=== PATIENT | male | born 1960 | race Caucasian/White ===

== ENCOUNTER 2020-03-27 08:22 | Outpatient (REF) | payer BC, SELFPAY ==
[2020-03-27 11:23] LABS: Estimated Average Glucose 126 mg/dL; Hemoglobin A1C 147.6677 umol/L
[2020-03-27 11:47] LABS: Alanine Aminotransferase 26 U/L (0-40); Albumin Level 4.6 g/dL (3.5-5.0); Alkaline Phosphatase 67 U/L (39-117); Anion Gap 14 (12-20); Aspartate Amino Transferase 18 U/L (5-37); Bilirubin Total 0.8 mg/dL (0.0-1.0); Blood Urea Nitrogen 18 mg/dL (9-16); Calcium 9.1 mg/dL (8.4-10.2); Carbon Dioxide 24 mmol/L (22-29); Chloride 106 mmol/L (96-108); Cholesterol 170 mg/dL; Estimated Glomerular Filt Rate > 60; Glucose Fasting 131 mg/dL (60-99); HDL Cholesterol 35 mg/dL; LDL Cholesterol Calculated 106 mg/dl; Sodium 140 mmol/L (135-145); Total Protein 7.3 g/dL (6.5-8.0); Triglycerides 146 mg/dL
[2020-03-27 12:01] LABS: Microalbum/Creatinine Ratio Ur 7.5 ug/mg cr
== END 2020-03-27 08:23 | disposition home or self-care (01) ==
LOC: HO.HMGCLDS 08:22
PROVIDERS: PCP Internal Medicine; Visit Provider Internal Medicine
DX: E78.2 Mixed hyperlipidemia (principal); I10 Essential (primary) hypertension; N20.0 Calculus of kidney; E11.69 Type 2 diabetes mellitus with other specified complication
CPT/HCPCS: 80053; 80061; 82043; 83036

== ENCOUNTER 2020-10-10 09:09 | Outpatient (REF) | payer BC, SELFPAY ==
[2020-10-10 11:29] LABS: Glucose Urine UA NEG (NEG); Leukocyte Esterase Urine NEG (NEG); Nitrite Urine NEG (NEG); Specific Gravity - Urine 1.025 (1.005-1.025); Urine Blood NEG (NEG); Urine Ketones NEG (NEG); Urine Protein NEG (NEG-TRACE)
[2020-10-10 11:32] LABS: Appearance Urine TURBID; Color Urine YELLOW
[2020-10-10 11:45] LABS: Hemoglobin 12.3 g/dl (14.0-18.0); Mean Corpuscular HGB Conc 32.4 g/dl (31.0-36.0); Mean Corpuscular Hemoglobin 30.4 pg (27.0-33.0); Mean Corpuscular Volume 93.8 fL (80-98); Mean Platelet Volume 11.8 fL (9.4-12.4); Platelet Count 160 X10*3/uL (160-400); Red Blood Count 4.05 X10*6/uL (4.60-5.80); Red Cell Distribution Width 13.5 % (11.0-16.0); White Blood Count 6.2 X10*3/uL (4.8-10.8)
[2020-10-10 11:51] LABS: Estimated Average Glucose 131 mg/dL; Hemoglobin A1c % 6.2 %
[2020-10-10 11:54] LABS: Alanine Aminotransferase 45 U/L (0-40); Albumin Level 4.4 g/dL (3.5-5.0); Alkaline Phosphatase 63 U/L (39-117); Anion Gap 11 (12-20); Aspartate Amino Transferase 21 U/L (5-37); Bilirubin Total 0.6 mg/dL (0.0-1.0); Blood Urea Nitrogen 14 mg/dL (9-16); Carbon Dioxide 25 mmol/L (22-29); Chloride 108 mmol/L (96-108); Cholesterol 164 mg/dL; Estimated Glomerular Filt Rate > 60; Glucose Fasting 138 mg/dL (60-99); HDL Cholesterol 32 mg/dL; LDL Cholesterol Calculated 77 mg/dl; Potassium 4.3 mmol/L (3.3-5.1); Sodium 140 mmol/L (135-145); Total Protein 6.8 g/dL (6.5-8.0); Triglycerides 276 mg/dL
[2020-10-10 12:04] LABS: RBC Urine 0 /HPF (0); WBC Urine 0 /HPF (0-4)
[2020-10-10 12:05] LABS: Amorphous Sediment Urine 4+ /LPF
[2020-10-10 12:17] LABS: Prostate Specific Antigen Scr 0.34 ng/mL (<0.05-4.0)
[2020-10-10 12:18] LABS: Creatinine Urine 227.78 mg/dL; Microalbum/Creatinine Ratio Ur 7.4 ug/mg cr
== END 2020-10-10 09:10 | disposition home or self-care (01) ==
LOC: HO.HMGCLDS 09:09
PROVIDERS: PCP Internal Medicine; Visit Provider Internal Medicine
DX: Z12.5 Encounter for screening for malignant neoplasm of prostate (principal); E11.9 Type 2 diabetes mellitus without complications; E78.5 Hyperlipidemia, unspecified; I10 Essential (primary) hypertension; N40.0 Benign prostatic hyperplasia without lower urinary tract symptoms
CPT/HCPCS: 36415; 80053; 80061; 81001; 82043; 83036; 84153; 85027

== ENCOUNTER 2021-02-23 10:43 | Outpatient (REF) | payer BC, SELFPAY ==
[2021-02-23 15:42] LABS: Basophils Percent Auto 0.5 % (0-2); MANUAL DIFF FLAG SCAN; PLT CLUMP 1; SCAN SMEAR FLAG 1
[2021-02-23 15:44] LABS: Eosinophils Percent Auto 0.3 % (0-4); Hematocrit 43.1 % (42.0-52.0); Hemoglobin 13.7 g/dl (14.0-18.0); Imm Gran Abs Auto 0.03 X10*3/uL (0.00-0.03); Imm Gran Pct Auto 0.5 % (0.0-0.4); Lymphocytes Absolute Auto 1.6 X10*3/uL (1.2-4.9); Lymphocytes Percent Auto 27.6 % (20-40); Mean Corpuscular HGB Conc 31.8 g/dl (31.0-36.0); Mean Corpuscular Hemoglobin 29.8 pg (27.0-33.0); Mean Corpuscular Volume 93.9 fL (80.0-98.0); Monocytes Absolute Auto 0.4 X10*3/uL (0.1-1.2); Monocytes Percent Auto 7.5 % (2-11); Neutrophils Absolute Auto 3.6 x10*3/uL (2.0-8.3); Neutrophils Percent Auto 63.6 % (45-73); Platelet Count 142 X10*3/uL (160-400); Red Blood Count 4.59 X10*6/uL (4.60-5.80); Red Cell Distribution Width 13.5 % (11.0-16.0); White Blood Count 5.7 X10*3/uL (4.8-10.8)
[2021-02-23 15:56] LABS: Estimated Average Glucose 134 mg/dL; Hemoglobin A1c % 6.3 %
[2021-02-23 15:59] LABS: Alanine Aminotransferase 26 U/L (0-40); Albumin Level 4.6 g/dL (3.5-5.0); Alkaline Phosphatase 70 U/L (39-117); Anion Gap 14 (12-20); Aspartate Amino Transferase 18 U/L (5-37); Bilirubin Total 1.1 mg/dL (0.0-1.0); Blood Urea Nitrogen 15 mg/dL (9-16); Calcium 9.4 mg/dL (8.4-10.2); Carbon Dioxide 26 mmol/L (22-29); Chloride 105 mmol/L (96-108); Cholesterol 168 mg/dL; Estimated Glomerular Filt Rate > 60; Glucose Fasting 145 mg/dL (60-99); HDL Cholesterol 35 mg/dL; Iron 132 mcg/dL (45-160); LDL Cholesterol Calculated 94 mg/dl; Percent Iron Saturation 41 % (15-50); Potassium 4.8 mmol/L (3.3-5.1); Sodium 140 mmol/L (135-145); Total Iron Binding Capacity 322 mcg/dL (228-428); Total Protein 7.5 g/dL (6.5-8.0); Triglycerides 197 mg/dL; Unsaturated Iron Binding 190 ug/dL
[2021-02-23 16:18] LABS: Creatinine Urine 159.01 mg/dL; Microalbum/Creatinine Ratio Ur 9.4 ug/mg cr
[2021-02-23 16:27] LABS: Folate 15.2 ng/mL (> or = 4.0); Vitamin B12 306 pg/mL (200-900)
[2021-02-23 18:34] LABS: SLIDE REVIEW VERIFIED
== END 2021-02-23 10:44 | disposition home or self-care (01) ==
LOC: HO.HMGCLDS 10:43
PROVIDERS: PCP Internal Medicine; Visit Provider Internal Medicine
DX: Z00.00 Encounter for general adult medical examination without abnormal findings (principal); E78.5 Hyperlipidemia, unspecified; I10 Essential (primary) hypertension
CPT/HCPCS: 36415; 80053; 80061; 82043; 82607; 82746; 83036; 83540; 85025

== ENCOUNTER 2021-05-18 11:10 | Outpatient (REF) | payer BC, SELFPAY ==
[2021-05-18 13:58] LABS: Alanine Aminotransferase 29 U/L (0-40); Albumin Level 4.7 g/dL (3.5-5.0); Alkaline Phosphatase 73 U/L (39-117); Anion Gap 13 (12-20); Aspartate Amino Transferase 18 U/L (5-37); Bilirubin Total 0.5 mg/dL (0.0-1.0); Blood Urea Nitrogen 14 mg/dL (9-16); Calcium 10.1 mg/dL (8.4-10.2); Carbon Dioxide 24 mmol/L (22-29); Chloride 107 mmol/L (96-108); Cholesterol 179 mg/dL; Estimated Glomerular Filt Rate > 60; Glucose Fasting 118 mg/dL (60-99); HDL Cholesterol 35 mg/dL; LDL Cholesterol Calculated 100 mg/dl; Potassium 4.2 mmol/L (3.3-5.1); Sodium 140 mmol/L (135-145); Total Protein 7.6 g/dL (6.5-8.0); Triglycerides 223 mg/dL
[2021-05-18 14:06] LABS: Estimated Average Glucose 137 mg/dL; Hemoglobin A1c % 6.4 %
[2021-05-18 14:24] LABS: Creatinine Urine 154.38 mg/dL; Microalbum/Creatinine Ratio Ur 23.9 ug/mg cr
== END 2021-05-18 11:11 | disposition home or self-care (01) ==
LOC: HO.HMGCLDS 11:10
PROVIDERS: Visit Provider Internal Medicine
DX: E11.9 Type 2 diabetes mellitus without complications (principal); I10 Essential (primary) hypertension; E78.5 Hyperlipidemia, unspecified
CPT/HCPCS: 36415; 80053; 80061; 82043; 83036

== ENCOUNTER 2021-11-30 11:12 | Outpatient (REF) | payer BC, SELFPAY ==
[2021-11-30 14:16] LABS: Estimated Average Glucose 123 mg/dL; Hemoglobin A1c % 5.9 %
[2021-11-30 14:25] LABS: Alanine Aminotransferase 18 U/L (0-40); Albumin Level 4.5 g/dL (3.5-5.0); Alkaline Phosphatase 60 U/L (39-117); Anion Gap 14 (12-20); Aspartate Amino Transferase 15 U/L (5-37); Bilirubin Total 0.6 mg/dL (0.0-1.0); Blood Urea Nitrogen 19 mg/dL (9-16); Carbon Dioxide 22 mmol/L (22-29); Chloride 109 mmol/L (96-108); Cholesterol 168 mg/dL; Estimated Glomerular Filt Rate > 60; Glucose Fasting 105 mg/dL (60-99); HDL Cholesterol 35 mg/dL; LDL Cholesterol Calculated 95 mg/dl; Sodium 141 mmol/L (135-145); Total Protein 7.1 g/dL (6.5-8.0); Triglycerides 193 mg/dL
[2021-11-30 14:42] LABS: Creatinine Urine 218.15 mg/dL; Microalbum/Creatinine Ratio Ur 10.5 ug/mg cr
== END 2021-11-30 11:13 | disposition home or self-care (01) ==
LOC: HO.HMGCLDS 11:12
PROVIDERS: PCP Internal Medicine; Visit Provider Internal Medicine
DX: E11.9 Type 2 diabetes mellitus without complications (principal); E78.5 Hyperlipidemia, unspecified; I10 Essential (primary) hypertension
CPT/HCPCS: 36415; 80053; 80061; 82043; 83036

== ENCOUNTER 2022-02-01 13:02 | Outpatient (REF) | payer BC, SELFPAY ==
--- NOTE | ~2022-02-01 | CT_ITS ---
EXAMINATION: CT CHEST SCREENING CLINICAL INFORMATION: Current smoker with 40 pack year history. COMPARISON: None. TECHNIQUE: Multidetector volumetric CT imaging of the chest is performed without contrast using low dose technique. Additional 2D coronal and sagittal reformatted images and axial 3D maximum intensity projection (MIP) images are generated on the CT workstation. This CT examination was performed using dose optimization techniques as appropriate, variously including the following: *Automated exposure control *Adjustment of mA and/or kV according to patient size (this includes techniques or standardized protocols for targeted exams where dose is matched to indication/reason for exam; i.e. extremities or head) *Use of iterative reconstruction technique DLP: 73 mGy-cm CT GI: 1.65 FINDINGS: LUNGS: Central airways are patent. No confluent parenchymal disease. No bronchiectasis. Mild changes of centrilobular emphysema. There are scattered sub-4 mm densities seen bilaterally. No suspicious lung nodules appreciated. MEDIASTINUM: Visualized thyroid gland appears unremarkable. Heart normal size. No pericardial effusion. No thoracic aortic aneurysm. No mediastinal or hilar lymphadenopathy appreciated. CORONARY ARTERY CALCIFICATION: Moderate. PLEURA: There is no pleural effusion. No pleural mass or thickening. AXILLA: No lymphadenopathy. UPPER ABDOMEN: Unremarkable OSSEOUS STRUCTURES: No acute destructive bony lesions identified. No thoracic vertebral body compression fractures identified. There is calcification of the anterior longitudinal ligament in the mid and lower thoracic spine consistent with DISH. Disc spaces appear generally maintained. CT/CT lung screening IMPRESSION: No suspicious lung nodules identified. Mild changes of centrilobular emphysema. ASSESSMENT: Lung-RADS category 2: Benign RECOMMENDATION: Routine annual low-dose CT screening in 12 months.
== END 2022-02-01 13:03 | disposition home or self-care (01) ==
LOC: HO.CT 13:02
PROVIDERS: Visit Provider Physician Assistant Medical
DX: Z12.2 Encounter for screening for malignant neoplasm of respiratory organs (principal); F17.210 Nicotine dependence, cigarettes, uncomplicated
CPT/HCPCS: 71271; G0296

== ENCOUNTER 2022-05-20 10:44 | Outpatient (REF) | payer BC, SELFPAY ==
[2022-05-20 14:08] LABS: MANUAL DIFF FLAG NO
[2022-05-20 14:20] LABS: Basophils Percent Auto 0.5 % (0-2); Eosinophils Absolute Auto 0.2 X10*3/uL (0.0-0.4); Eosinophils Percent Auto 2.3 % (0-4); Hematocrit 41.7 % (42.0-52.0); Hemoglobin 13.7 g/dl (14.0-18.0); Imm Gran Abs Auto 0.02 X10*3/uL (0.00-0.03); Imm Gran Pct Auto 0.3 % (0.0-0.4); Lymphocytes Percent Auto 29.9 % (20-40); Mean Corpuscular HGB Conc 32.9 g/dl (31.0-36.0); Mean Corpuscular Hemoglobin 30.4 pg (27.0-33.0); Mean Corpuscular Volume 92.5 fL (80.0-98.0); Mean Platelet Volume 11.4 fL (9.4-12.4); Monocytes Absolute Auto 0.5 X10*3/uL (0.1-1.2); Monocytes Percent Auto 8.2 % (2-11); Neutrophils Absolute Auto 3.9 x10*3/uL (2.0-8.3); Neutrophils Percent Auto 58.8 % (45-73); Platelet Count 147 X10*3/uL (160-400); Red Blood Count 4.51 X10*6/uL (4.60-5.80); White Blood Count 6.6 X10*3/uL (4.8-10.8)
[2022-05-20 14:47] LABS: Estimated Average Glucose 137 mg/dL; Hemoglobin A1c % 6.4 %
[2022-05-20 14:48] LABS: Alanine Aminotransferase 21 U/L (0-40); Albumin Level 4.5 g/dL (3.5-5.0); Alkaline Phosphatase 72 U/L (39-117); Anion Gap 15 (12-20); Aspartate Amino Transferase 13 U/L (5-37); Bilirubin Total 0.8 mg/dL (0.0-1.0); Blood Urea Nitrogen 19 mg/dL (9-16); Calcium 9.3 mg/dL (8.4-10.2); Carbon Dioxide 23 mmol/L (22-29); Chloride 108 mmol/L (96-108); Cholesterol 178 mg/dL; Estimated Glomerular Filt Rate > 60; Glucose Fasting 136 mg/dL (60-99); HDL Cholesterol 30 mg/dL; LDL Cholesterol Calculated 101 mg/dl; Potassium 4.7 mmol/L (3.3-5.1); Sodium 141 mmol/L (135-145); Total Protein 7.2 g/dL (6.5-8.0); Triglycerides 236 mg/dL
[2022-05-20 15:04] LABS: Creatinine Urine 161.39 mg/dL; Microalbum/Creatinine Ratio Ur 11.7 ug/mg cr
== END 2022-05-20 10:45 | disposition home or self-care (01) ==
LOC: HO.HMGCLDS 10:44
PROVIDERS: Visit Provider Internal Medicine
DX: E11.9 Type 2 diabetes mellitus without complications (principal); E78.5 Hyperlipidemia, unspecified; I10 Essential (primary) hypertension
CPT/HCPCS: 36415; 80053; 80061; 82043; 83036; 85025

== ENCOUNTER 2022-07-25 10:11 | Outpatient (REF) | payer BC, SELFPAY ==
[2022-07-25 11:23] LABS: MANUAL DIFF FLAG NO
[2022-07-25 11:45] LABS: Basophils Absolute Auto 0.1 X10*3/uL (0.0-0.2); Basophils Percent Auto 0.8 % (0-2); Eosinophils Absolute Auto 0.1 X10*3/uL (0.0-0.4); Hemoglobin 13.1 g/dl (14.0-18.0); Imm Gran Abs Auto 0.02 X10*3/uL (0.00-0.03); Imm Gran Pct Auto 0.3 % (0.0-0.4); Lymphocytes Absolute Auto 1.5 X10*3/uL (1.2-4.9); Mean Corpuscular HGB Conc 32.8 g/dl (31.0-36.0); Mean Corpuscular Hemoglobin 30.3 pg (27.0-33.0); Mean Corpuscular Volume 92.4 fL (80.0-98.0); Mean Platelet Volume 11.4 fL (9.4-12.4); Monocytes Absolute Auto 0.6 X10*3/uL (0.1-1.2); Monocytes Percent Auto 8.8 % (2-11); Neutrophils Absolute Auto 4.4 x10*3/uL (2.0-8.3); Neutrophils Percent Auto 66.1 % (45-73); Platelet Count 152 X10*3/uL (160-400); Red Blood Count 4.33 X10*6/uL (4.60-5.80); Red Cell Distribution Width 13.1 % (11.0-16.0); White Blood Count 6.6 X10*3/uL (4.8-10.8)
[2022-07-25 12:14] LABS: Estimated Average Glucose 131 mg/dL; Hemoglobin A1c % 6.2 %
[2022-07-25 12:22] LABS: Anion Gap 12 (12-20); Blood Urea Nitrogen 17 mg/dL (9-16); Calcium 9.4 mg/dL (8.4-10.2); Carbon Dioxide 26 mmol/L (22-29); Chloride 108 mmol/L (96-108); Estimated Glomerular Filt Rate > 60; Glucose Random 116 mg/dL (60-115); Potassium 4.3 mmol/L (3.3-5.1); Sodium 142 mmol/L (135-145)
== END 2022-07-25 10:12 | disposition home or self-care (01) ==
LOC: HO.HMGCLDS 10:11
PROVIDERS: PCP Internal Medicine; Visit Provider Internal Medicine
DX: E11.9 Type 2 diabetes mellitus without complications (principal); K64.9 Unspecified hemorrhoids; I10 Essential (primary) hypertension
CPT/HCPCS: 36415; 80048; 83036; 85025

== ENCOUNTER 2022-08-23 09:46 | Outpatient (REF) | payer BC, SELFPAY ==
[2022-08-23 11:18] LABS: MANUAL DIFF FLAG NO
[2022-08-23 11:45] LABS: Basophils Absolute Auto 0.1 X10*3/uL (0.0-0.2); Basophils Percent Auto 0.8 % (0-2); Eosinophils Absolute Auto 0.1 X10*3/uL (0.0-0.4); Eosinophils Percent Auto 1.8 % (0-4); Hematocrit 42.1 % (42.0-52.0); Hemoglobin 13.7 g/dl (14.0-18.0); Imm Gran Abs Auto 0.04 X10*3/uL (0.00-0.03); Imm Gran Pct Auto 0.6 % (0.0-0.4); Lymphocytes Absolute Auto 2.4 X10*3/uL (1.2-4.9); Lymphocytes Percent Auto 36.2 % (20-40); Mean Corpuscular HGB Conc 32.5 g/dl (31.0-36.0); Mean Corpuscular Hemoglobin 29.8 pg (27.0-33.0); Mean Corpuscular Volume 91.7 fL (80.0-98.0); Mean Platelet Volume 11.6 fL (9.4-12.4); Monocytes Absolute Auto 0.5 X10*3/uL (0.1-1.2); Monocytes Percent Auto 7.9 % (2-11); Neutrophils Absolute Auto 3.5 x10*3/uL (2.0-8.3); Neutrophils Percent Auto 52.7 % (45-73); Platelet Count 191 X10*3/uL (160-400); Red Blood Count 4.59 X10*6/uL (4.60-5.80); Red Cell Distribution Width 13.1 % (11.0-16.0); White Blood Count 6.6 X10*3/uL (4.8-10.8)
[2022-08-23 12:18] LABS: Alanine Aminotransferase 26 U/L (0-40); Albumin Level 4.5 g/dL (3.5-5.0); Alkaline Phosphatase 68 U/L (39-117); Anion Gap 16 (12-20); Aspartate Amino Transferase 15 U/L (5-37); Bilirubin Total 0.9 mg/dL (0.0-1.0); Blood Urea Nitrogen 14 mg/dL (9-16); Carbon Dioxide 22 mmol/L (22-29); Chloride 107 mmol/L (96-108); Cholesterol 176 mg/dL; Estimated Glomerular Filt Rate > 60; Glucose Fasting 126 mg/dL (60-99); HDL Cholesterol 32 mg/dL; LDL Cholesterol Calculated 93 mg/dl; Potassium 4.5 mmol/L (3.3-5.1); Sodium 140 mmol/L (135-145); Total Protein 7.3 g/dL (6.5-8.0); Triglycerides 256 mg/dL
[2022-08-23 12:35] LABS: Creatinine Urine 240.65 mg/dL; Microalbum/Creatinine Ratio Ur 14.5 ug/mg cr
== END 2022-08-23 09:47 | disposition home or self-care (01) ==
LOC: HO.HMGCLDS 09:46
PROVIDERS: PCP Internal Medicine; Visit Provider Internal Medicine
DX: E11.9 Type 2 diabetes mellitus without complications (principal); I10 Essential (primary) hypertension; E78.5 Hyperlipidemia, unspecified
CPT/HCPCS: 36415; 80053; 80061; 82043; 85025

== ENCOUNTER 2022-12-03 12:33 | Outpatient (REF) | payer BC, SELFPAY ==
[2022-12-03 16:09] LABS: MANUAL DIFF FLAG NO
[2022-12-03 16:17] LABS: Basophils Percent Auto 0.4 % (0-2); Eosinophils Absolute Auto 0.1 X10*3/uL (0.0-0.4); Eosinophils Percent Auto 1.3 % (0-4); Hemoglobin 12.8 g/dl (14.0-18.0); Imm Gran Abs Auto 0.02 X10*3/uL (0.00-0.03); Imm Gran Pct Auto 0.3 % (0.0-0.4); Lymphocytes Absolute Auto 1.7 X10*3/uL (1.2-4.9); Lymphocytes Percent Auto 24.3 % (20-40); Mean Corpuscular HGB Conc 32.8 g/dl (31.0-36.0); Mean Corpuscular Hemoglobin 30.6 pg (27.0-33.0); Mean Corpuscular Volume 93.3 fL (80.0-98.0); Mean Platelet Volume 11.8 fL (9.4-12.4); Monocytes Absolute Auto 0.5 X10*3/uL (0.1-1.2); Monocytes Percent Auto 7.2 % (2-11); Neutrophils Absolute Auto 4.7 x10*3/uL (2.0-8.3); Neutrophils Percent Auto 66.5 % (45-73); Platelet Count 171 X10*3/uL (160-400); Red Blood Count 4.18 X10*6/uL (4.60-5.80); Red Cell Distribution Width 13.4 % (11.0-16.0)
[2022-12-03 16:23] LABS: Estimated Average Glucose 114 mg/dL; Hemoglobin A1C 124.8348 umol/L; Hemoglobin A1c % 5.6 %
[2022-12-03 16:34] LABS: Alanine Aminotransferase 16 U/L (0-40); Albumin Level 4.5 g/dL (3.5-5.0); Alkaline Phosphatase 57 U/L (39-117); Anion Gap 11 (12-20); Aspartate Amino Transferase 14 U/L (5-37); Bilirubin Total 0.5 mg/dL (0.0-1.0); Blood Urea Nitrogen 18 mg/dL (9-16); Calcium 10.4 mg/dL (8.4-10.2); Carbon Dioxide 24 mmol/L (22-29); Chloride 108 mmol/L (96-108); Cholesterol 154 mg/dL; Estimated Glomerular Filt Rate 56; Glucose Fasting 120 mg/dL (60-99); HDL Cholesterol 38 mg/dL; LDL Cholesterol Calculated 97 mg/dl; Potassium 4.4 mmol/L (3.3-5.1); Sodium 139 mmol/L (135-145); Total Protein 7.6 g/dL (6.5-8.0); Triglycerides 98 mg/dL
[2022-12-03 16:48] LABS: Creatinine Urine 186.93 mg/dL; Microalbum/Creatinine Ratio Ur 11.7 ug/mg cr
== END 2022-12-03 12:34 | disposition home or self-care (01) ==
LOC: HO.HMGCLDS 12:33
PROVIDERS: PCP Internal Medicine; Visit Provider Internal Medicine
DX: E11.9 Type 2 diabetes mellitus without complications (principal); E78.5 Hyperlipidemia, unspecified; I10 Essential (primary) hypertension
CPT/HCPCS: 36415; 80053; 80061; 82043; 83036; 85025

== ENCOUNTER 2022-12-09 10:29 | Outpatient (AMB) | payer BC, SELFPAY ==
--- NOTE | 2022-12-09 10:31 | A.OFFPC_ITS ---
Vital Signs 12/09/22 10:32 Height 5 ft 8 in Weight 202 lb BMI 30.7 BP 120/70 Blood Pressure Location Lt brachial Position Sitting Pulse 72 Pulse Source Pulse Oximeter Pulse Oximetry (%) 99 Oxygen Delivery Method Room Air Intake Visit Reasons: PE Intake Note: Pt is here today for PE. Allergies No Known Allergies Allergy (Verified 12/09/22 10:34) Medication List - Last Reconciled 12/09/22 by Leigh Duarte MD albuterol sulfate 90 mcg/actuation 2 puffs inhalation Q6H PRN atorvastatin 10 mg PO DAILY blood sugar diagnostic (FreeStyle Lite Strips) 1 qd blood-glucose meter (FreeStyle Lite Meter kit) As directed fenofibrate micronized 134 mg PO DAILY flu vac [id number] 36mos up(PF) mL IM hydrocortisone 2.5% (Proctosol HC) 1 appl NM BID-QID PRN hydrocortisone acetate 25 mg NM BID metformin 850 mg PO BID olmesartan 20 mg PO DAILY sildenafil mg PO tamsulosin 0.4 mg PO DAILY Tobacco use date assessed: 12/09/22 Dental Screening Dental Screen Date: 12/09/22 Did you have a dental visit in the last 12 months?: Yes Did you have a dental problem in the last 6 months where you did not have access to dental care?: No Was dental information given to patient?: Patient has dentist HPI PE HPI Details Pt presents for PE. Pt c/o chronic LBP radiating to LLE, worse after lifting or twisting his body. He denies weakness or numbness in extremity change in bowel or bladder function PFSH Medical History (Updated 12/09/22 @ 11:12 by Leigh Duarte MD) BPH (benign prostatic hyperplasia) Hyperlipidemia Hypertension Nicotine dependence, cigarettes, uncomplicated Type 2 diabetes mellitus Surgical History History of colonoscopy Family History Father Unknown family medical history Mother Unknown family medical history Brother CAD (coronary artery disease) Social History Housing: House Patient Tobacco Use Status: Current everyday Tobacco user Cigarettes Per Day: 15 Years Smoked: (current smoker, onset 19yo, 3/4ppd x 42yrs, 30+PYH) e-Cigarette/Vaping Use: Never Used service: No Current occupational status: employed Current occupational exposures/hazards: No Cognitive needs: No Hearing needs: No Vision needs: Yes Questionnaire Thrive Questionnaire Date Thrive assessed: 05/24/22 AUDIT C Alcohol Use Questionnaire (AUDIT-C) 1. How often do you have a drink containing alcohol?: Monthly or less 2. How many drinks containing alcohol do you have on a typical day when you are drinking?: 1 or 2 3. How often do you have six or more drinks on one occasion?: Never Total Score: 1 ANTHONY-7 AMB Questionnaire ANTHONY-7 Date ANTHONY - 7 assessed: 05/24/22 Source: Developed by Drs. Julio César Cohn, Kaitlin Gtz, Kishore Silvestre and colleagues, with an educational gaurav from [employer]. Review of Systems Const All systems reviewed & are unremarkable except as noted in HPI and below Reports no additional complaints Eyes Reports no additional complaints ENT Reports no additional complaints Card Reports no additional complaints Resp Reports no additional complaints GI Reports no additional complaints Reports no additional complaints Physical exam (Primary Care) Vital Signs: Last Vital Signs Pulse 72 12/09/22 10:32 BP 120/70 12/09/22 10:32 Pulse Ox 99 12/09/22 10:32 Oxygen Delivery Method Room Air 12/09/22 10:32 BMI result Body Mass Index 30.7 Tobacco/Smoking Status: Tobacco use Status Tobacco use date assessed 12/09/22 12/09/22 10:36 Patient Tobacco Use Status Current everyday Tobacco 12/09/22 10:34 e-Cigarette/Vaping Use Never Used 12/09/22 10:34 Thrive Assessment: Date of Thrive Assessment Date Thrive assessed 05/24/22 12/09/22 10:34 Const General: no acute distress HENMT Ears: hearing grossly normal bilaterally Eyes General: appearance normal, both eyes and all related structures Neck Neck: Yes no lymphadenopathy and Yes supple Resp Effort & Inspection: normal respiratory effort Auscultation: clear to auscultation bilaterally Cardio Rhythm: regular rhythm Heart sounds: S1 normal heart sound present and S2 normal heart sound present GI Inspection: Yes normal to inspection Palpation (GI): Soft to palpation Percussion: Yes normal to percussion Auscultation: normal bowel sounds Back/Spine/Pelvis Other: Decreased range of motion lumbar spine paraspinal tenderness left more than right, straight leg rising 90 degrees bilaterally, strength 5/5 in both lower extremities, heel and toe walk intact bilaterally Assessment and Plan Assessment & Plan (1) Chronic lower back pain: Code(s): M54.50 - Low back pain, unspecified; G89.29 - Other chronic pain Plan: Patient will be referred to physical therapy. Lower back exercises and lifestyle modification discussed with the patient (2) Type 2 diabetes mellitus: Code(s): E11.9 - Type 2 diabetes mellitus without complications Plan: A1c is down to 5.6, continue ADA diet increase physical activity and continue metformin. Follow-up in 6 months with a fasting labs before (3) Hypertension: Code(s): I10 - Essential (primary) hypertension Plan: Continue olmesartan (4) Hyperlipidemia: Code(s): E78.5 - Hyperlipidemia, unspecified Plan: Continue statin (5) Annual physical exam: Code(s): Z00.00 - Encounter for general adult medical examination without abnormal findings Plan: Regular physical activity well-balanced diet weight loss discussed with the patient. He is up-to-date with colonoscopy and will return in 6 months with a fasting labs Orders: Orders PT Evaluation and Treatment Today G89.29 - Other chronic pain, M54.50 - Low back pain, unspecified Comprehensive [place]. Panel Fast 6 Months E11.9 - Type 2 diabetes mellitus without complications, E78.5 - Hyperlipidemia, unspecified, I10 - Essential (primary) hypertension, Z00.00 - Encounter for general adult medical examination without abnormal findings Hemoglobin A1c 6 Months E11.9 - Type 2 diabetes mellitus without complications, E78.5 - Hyperlipidemia, unspecified, I10 - Essential (primary) hypertension, Z00.00 - Encounter for general adult medical examination without abnormal findings Lipid Panel 6 Months E11.9 - Type 2 diabetes mellitus without complications, E78.5 - Hyperlipidemia, unspecified, I10 - Essential (primary) hypertension, Z00.00 - Encounter for general adult medical examination without abnormal find ings Complete Blood Count Auto Diff 6 Months E11.9 - Type 2 diabetes mellitus without complications, E78.5 - Hyperlipidemia, unspecified, I10 - Essential (primary) hypertension, Z00.00 - Encounter for general adult medical examination without abnormal findings Medications: Changed From metformin 850 mg PO DAILY 180 tabs 4RF To metformin 850 mg PO BID 180 tabs 4RF Coding Level of Care Code Est Pt Prev Care 40-64y(46260) Diagnoses Chronic lower back pain M54.50; G89.29 Type 2 diabetes mellitus E11.9 Hypertension I10 Hyperlipidemia E78.5 Annual physical exam Z00.00
[2022-12-09 10:32] VITALS: BP 120/70; PULSE 72; O2SAT 99; BMI 30.7
== END 2022-12-09 11:11 | disposition home or self-care (01) ==
PROVIDERS: PCP Internal Medicine; Visit Provider Internal Medicine
DX: Z00.00 Encounter for general adult medical examination without abnormal findings (principal); E11.9 Type 2 diabetes mellitus without complications; I10 Essential (primary) hypertension; M54.50 Low back pain, unspecified; G89.29 Other chronic pain; E78.5 Hyperlipidemia, unspecified
CPT/HCPCS: 99396

== ENCOUNTER 2023-01-03 11:00 | Outpatient (RCR) | payer BC, SELFPAY ==
--- NOTE | 2022-12-17 12:28 | MHC.PT.EP ---
[facility] [place] Office [place] Office [place] Office [address] Maribell Bañuelos [address] [phone] F: [phone] F: [phone] F: [phone] F: [phone] Physical Therapy Plan of Care Date of Evaluation: Date of Surgery: Diagnosis: lower back pain Assessment: Patient is a 62 year old R handed male who presents with s/s consistent with low back pain. 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 Patient past medical history includes back surgery in 2013. Current impairments include pain, posture, ROM, strength, activity tolerance, flexibility, body mechanics, and functional mobility. Functional limitations include decreased ability to walk, stand, lift, push, pull, work and do physical labor. Patient is motivated with good rehab potential. Skilled PT will address impairments and functional limitations in order to achieve goals. Frequency and Duration: The patient will be seen 2x/week for 5 weeks Short Term Goals: I with HEP - 2 weeks AROM rotation 75% and pain free - 3 weeks s/s centralized - 3 weeks [employer] Goals: Oswestry 23% or better - 5 weeks Demo proper floor to waist lift - 20# - without cues - 5 weeks 90/90 lacking 25 or less b/l - 5 weeks MAx pain with ADLs /10 - 5 weeks Treatment Plan: Modalities to reduce pain, spasms and effusion. Manual therapy to restore motion and function. Therapeutic exercise to improve strength and flexibility. Neuromuscular re-education for posture and balance. Therapeutic activities to return to functional activities of daily living. Electronically signed by: Khang Dempsey, PT Please sign and return to therapist. Thank you for your referral.
--- NOTE | 2023-05-06 11:30 | MHC.PT.DC ---
[facility] [place] Office [place] Office [place] Office [address] Maribell Bañuelos [address] [phone] F: [phone] F: [phone] F: [phone] F: [phone] Physical Therapy Discharge Report Diagnosis: lower back pain Date of Surgery: Date of Evaluation: 12/17/22 Date of Discharge: 01/16/23 Treatments to Date: 6 Cancellations to Date: No Shows to Date: Discharge Status: Improved Function Independent with HEP Discharge Summary: 01/03/23: pt responded well to above interventions and has no s/s at this time. he will attempt to continue exclusively with HEP and will call back if needed. 01/01/23: pt has been feeling better overall with less s/s and less tightness. good compliance with HEP. continue to progress as tolerated. 12/27/22: pt with less s/s, able to perform most activities pain free. continue to progress as tolerated. 12/25/22: pt progressing well overall. responding well to manual intervention. no adverse reactions from above program. progress as tolerated. 12/19/22: compliant and responding well to HEP. added stretching today with no adverse reactions. Patient is a 62 year old R handed male who presents with s/s consistent with low back pain. 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 Patient past medical history includes back surgery in 2014. Current impairments include pain, posture, ROM, strength, activity tolerance, flexibility, body mechanics, and functional mobility. Functional limitations include decreased ability to walk, stand, lift, push, pull, work and do physical labor. Patient is motivated with good rehab potential. Skilled PT will address impairments and functional limitations in order to achieve goals. Electronically signed by: Khang Dempsey, PT Please sign and return to therapist. Thank you for your referral.
== END 2023-05-06 11:30 | disposition home or self-care (01) ==
LOC: HO.PTCHIC 11:00
PROVIDERS: PCP Internal Medicine; Visit Provider Internal Medicine
DX: M54.50 Low back pain, unspecified (principal); G89.29 Other chronic pain
CPT/HCPCS: 97110; 97140; 97162

== ENCOUNTER 2023-06-05 11:41 | Outpatient (REF) | payer BC, SELFPAY ==
[2023-06-05 13:02] LABS: MANUAL DIFF FLAG NO
[2023-06-05 13:23] LABS: Basophils Absolute Auto 0.1 X10*3/uL (0.0-0.2); Basophils Percent Auto 0.8 % (0-2); Eosinophils Absolute Auto 0.3 X10*3/uL (0.0-0.4); Eosinophils Percent Auto 4.2 % (0-4); Hemoglobin 13.1 g/dl (14.0-18.0); Imm Gran Abs Auto 0.02 X10*3/uL (0.00-0.03); Imm Gran Pct Auto 0.3 % (0.0-0.4); Lymphocytes Absolute Auto 1.5 X10*3/uL (1.2-4.9); Lymphocytes Percent Auto 25.1 % (20-40); Mean Corpuscular HGB Conc 32.8 g/dl (31.0-36.0); Mean Corpuscular Volume 91.7 fL (80.0-98.0); Mean Platelet Volume 11.6 fL (9.4-12.4); Monocytes Absolute Auto 0.4 X10*3/uL (0.1-1.2); Monocytes Percent Auto 6.9 % (2-11); Neutrophils Absolute Auto 3.8 x10*3/uL (2.0-8.3); Neutrophils Percent Auto 62.7 % (45-73); Platelet Count 168 X10*3/uL (160-400); Red Blood Count 4.36 X10*6/uL (4.60-5.80); Red Cell Distribution Width 13.2 % (11.0-16.0)
[2023-06-05 13:33] LABS: Estimated Average Glucose 120 mg/dL; Hemoglobin A1c % 5.8 % (<6.0)
[2023-06-05 13:40] LABS: Alanine Aminotransferase 21 U/L (0-40); Albumin Level 4.5 g/dL (3.5-5.0); Alkaline Phosphatase 49 U/L (39-117); Anion Gap 11 (12-20); Aspartate Amino Transferase 19 U/L (5-37); Bilirubin Total 0.6 mg/dL (0.0-1.0); Blood Urea Nitrogen 17 mg/dL (9-16); Calcium 10.1 mg/dL (8.4-10.2); Carbon Dioxide 24 mmol/L (22-29); Chloride 108 mmol/L (96-108); Cholesterol 179 mg/dL (<200); Estimated Glomerular Filt Rate 53; Glucose Fasting 120 mg/dL (60-99); HDL Cholesterol 42 mg/dL (>40); LDL Cholesterol Calculated 114 mg/dL (<100); Potassium 4.3 mmol/L (3.3-5.1); Sodium 139 mmol/L (135-145); Total Protein 7.6 g/dL (6.5-8.0); Triglycerides 118 mg/dL (<150)
== END 2023-06-05 11:42 | disposition home or self-care (01) ==
LOC: HO.HMGCLDS 11:41
PROVIDERS: PCP Internal Medicine; Visit Provider Internal Medicine
DX: Z00.00 Encounter for general adult medical examination without abnormal findings (principal); E11.9 Type 2 diabetes mellitus without complications; E78.5 Hyperlipidemia, unspecified; I10 Essential (primary) hypertension
CPT/HCPCS: 36415; 80053; 80061; 83036; 85025

== ENCOUNTER 2023-06-10 07:30 | Outpatient (AMB) | payer BC, SELFPAY ==
[2023-06-10 07:32] VITALS: BP 126/74; PULSE 83; O2SAT 98; BMI 30.9
--- NOTE | 2023-06-10 07:32 | MHC.PC.OV ---
Vital Signs 06/10/23 07:32 Height 5 ft 8 in Weight 203 lb BMI 30.9 BP 126/74 Blood Pressure Location Lt brachial Position Sitting Pulse 83 Pulse Source Pulse Oximeter Pulse Oximetry (%) 98 Oxygen Delivery Method Room Air Intake Visit Reasons: 6 month follow up Intake Note: Pt is here today for 6 months follow up visit on labs. Allergies No Known Allergies Allergy (Verified 06/10/23 07:33) Medication List - Last Reconciled 06/10/23 by Leigh Duarte MD albuterol sulfate 90 mcg/actuation 2 puffs inhalation Q6H PRN atorvastatin 10 mg PO DAILY blood sugar diagnostic (FreeStyle Lite Strips) 1 qd blood-glucose meter (FreeStyle Lite Meter kit) As directed fenofibrate micronized 134 mg PO DAILY flu vac [id number] 36mos up(PF) mL IM hydrocortisone 2.5% (Proctosol HC) 1 appl AL BID-QID PRN hydrocortisone acetate 25 mg AL BID metformin 850 mg PO BID olmesartan 20 mg PO DAILY sildenafil mg PO tamsulosin 0.4 mg PO DAILY Tobacco use date assessed: 06/10/23 Dental Screening Dental Screen Date: 06/10/23 Did you have a dental visit in the last 12 months?: Yes Did you have a dental problem in the last 6 months where you did not have access to dental care?: No Was dental information given to patient?: Patient has dentist HPI 6 month follow up HPI Details Pt presents for f/u DM 2, HTN, hyperlipid, stable on meds. Pt had acute renal colic in Mar and was hospitalized for 5 days. Patient follows up with urologist and denies any recurrent symptoms. [facility] Medical History (Updated 06/10/23 @ 09:27 by Leigh Duarte MD) Nicotine dependence, cigarettes, uncomplicated BPH (benign prostatic hyperplasia) Hyperlipidemia Type 2 diabetes mellitus Hypertension Surgical History History of colonoscopy Family History Father Unknown family medical history Mother Unknown family medical history Brother CAD (coronary artery disease) Social History Housing: House Patient Tobacco Use Status: Current everyday Tobacco user Cigarettes Per Day: 15 Years Smoked: (current smoker, onset 19yo, 3/4ppd x 42yrs, 30+PYH) e-Cigarette/Vaping Use: Never Used service: No Current occupational status: employed Current occupational exposures/hazards: No Cognitive needs: No Hearing needs: No Vision needs: Yes Questionnaire PHQ-9 Over the last 2 weeks, how often have you been bothered by any of the following problems? 1. Little interest or pleasure in doing things: not at all 2. Feeling down, depressed, or hopeless: not at all 3. Trouble falling or staying asleep, or sleeping too much: not at all 4. Feeling tired or having little energy: not at all 5. Poor appetite or overeating: not at all 6. Feeling bad about yourself - or that you are a failure or have let yourself or your family down: not at all 7. Trouble concentrating on things, such as reading the newspaper or watching television: not at all 8. Moving or speaking so slowly that other people could have noticed. Or the opposite - being so fidgety or restless that you have been moving around a lot more than usual: not at all 9. Thoughts that you would be better off or of hurting yourself in some way: not at all Total score: 0 Depression Screening Interpretation: Negative Depression Screening Done: Yes Source: Developed by Drs. Julio César Cohn, Kaitlin Gtz, Kishore Silvestre and colleagues, with an educational gaurav from [employer]. Thrive Questionnaire Date Thrive assessed: 06/10/23 I am a: Patient What is your living situation today?: I have a steady place to live Within the past 12 months, did the food you bought not last and you didn't have the money to get more?: Never true Within the past 12 months, did you worry whether your food would run out before you got money to buy more?: Never true Do you have trouble paying for medicines?: No Do you have trouble getting transportation to medical appointments?: No Do you have trouble paying your heating and electricity bill?: No Do you have trouble taking care of your child, family member or friend?: No Do you have trouble with day-to-day activities such as bathing, preparing meals, shopping, managing finances, etc.?: No Are you currently unemployed and looking for a job?: No Are you interested in more education?: No Please select the resources that you would like help with: None Currently or been in a relationship where the following occur: no concerns reported THRIVE Score: 0 ANTHONY-7 AMB Questionnaire ANTHONY-7 Date ANTHONY - 7 assessed: 06/10/23 Feeling nervous, anxious, or on edge: 0 = Not at all Not being able to stop or control worryin = Not at all Worrying too much about different things: 0 = Not at all Trouble relaxin = Not at all Being so restless that it is hard to sit still: 0 = Not at all Becoming easily annoyed or irritable: 0 = Not at all Feeling afraid as if something awful might happen: 0 = Not at all Total ANTHONY-7 score (0-4 normal; 5-9 mild; 10-14 moderate; 15-21 severe): 0 Source: Developed by Drs. Julio César Cohn, Kaitlin Gtz, Kishore Silvestre and colleagues, with an educational gaurav from [employer]. Review of Systems Const All systems reviewed & are unremarkable except as noted in HPI and below Reports no additional complaints Eyes Reports no additional complaints ENT Reports no additional complaints Card Reports no additional complaints Resp Reports no additional complaints GI Reports no additional complaints Reports no additional complaints Physical exam (Primary Care) Vital Signs: Last Vital Signs Pulse 83 06/10/23 07:32 BP 126/74 06/10/23 07:32 Pulse Ox 98 06/10/23 07:32 Oxygen Delivery Method Room Air 06/10/23 07:32 BMI result Body Mass Index 30.9 Tobacco/Smoking Status: Tobacco use Status Tobacco use date assessed 06/10/23 06/10/23 07:35 Patient Tobacco Use Status Current everyday Tobacco 06/10/23 07:35 e-Cigarette/Vaping Use Never Used 06/10/23 07:35 PHQ-9: PHQ-9 Score PHQ-9: Total score 0 06/10/23 08:05 Depression Screening Interpretation: Negative Thrive Assessment: Date of Thrive Assessment Date Thrive assessed 06/10/23 06/10/23 07:42 Currently or been in a relationship where the following occur: no concerns reported Const General: no acute distress HENMT Head: Yes normal to inspection Neck Neck: Yes supple Resp Effort & Inspection: normal respiratory effort Auscultation: clear to auscultation bilaterally Cardio Rhythm: regular rhythm Heart sounds: S1 normal heart sound present and S2 normal heart sound present GI Inspection: Yes normal to inspection Palpation (GI): Soft to palpation Percussion: Yes normal to percussion Auscultation: normal bowel sounds Assessment and Plan Assessment & Plan (1) Type 2 diabetes mellitus: Code(s): E11.9 - Type 2 diabetes mellitus without complications Plan: A1c was 5.8, ADA diet regular physical activity and continue metformin discussed with the patient (2) Hypertension: Comment: Used to take olmesartan, off the medication Code(s): I10 - Essential (primary) hypertension Plan: Monitor blood pressure (3) Hyperlipidemia: Code(s): E78.5 - Hyperlipidemia, unspecified Plan: Continue statin (4) BPH (benign prostatic hyperplasia): Code(s): N40.0 - Benign prostatic hyperplasia without lower urinary tract symptoms Plan: Continue tamsulosin (5) Nephrolithiasis: Comment: hx of renal colic 04/12, f/u urology Code(s): N20.0 - Calculus of kidney Plan: Follow-up with urology Orders: Orders Comprehensive [facility] [place]. Panel Fast 4 Months E11.9 - Type 2 diabetes mellitus without complications, E78.5 - Hyperlipidemia, unspecified, I10 - Essential (primary) hypertension, N40.0 - Benign prostatic hyperplasia without lower urinary tract symptoms Hemoglobin A1c 4 Months E11.9 - Type 2 diabetes mellitus without complications, E78.5 - Hyperlipidemia, unspecified, I10 - Essential (primary) hypertension, N40.0 - Benign prostatic hyperplasia without lower urinary tract symptoms Microalbumin, Random (w Creat) 4 Months E11.9 - Type 2 diabetes mellitus without complications, E78.5 - Hyperlipidemia, unspecified, I10 - Essential (primary) hypertension, N40.0 - Benign prostatic hyperplasia without lower urinary tract symptoms Complete Blood Count Auto Diff 4 Months E11.9 - Type 2 diabetes mellitus without complications, E78.5 - Hyperlipidemia, unspecified, I10 - Essential (primary) hypertension, N40.0 - Benign prostatic hyperplasia without lower urinary tract symptoms Lipid Panel 4 Months E11.9 - Type 2 diabetes mellitus without complications, E78.5 - Hyperlipidemia, unspecified, I10 - Essential (primary) hypertension, N40.0 - Benign prostatic hyperplasia without lower urinary tract symptoms UA w Microscopic Today E11.9 - Type 2 diabetes mellitus without complications, E78.5 - Hyperlipidemia, unspecified, I10 - Essential (primary) hypertension, N40.0 - Benign prostatic hyperplasia without lower urinary tract symptoms Medications: Discontinued olmesartan Discontinued Reason: Doctor's Order 20 mg PO DAILY 90 tabs 3RF Coding Level of Care Code Est Pt Level 4 (40073) Diagnoses Type 2 diabetes mellitus E11.9 Hypertension I10 Hyperlipidemia E78.5 BPH (benign prostatic hyperplasia) N40.0 Nephrolithiasis N20.0
== END 2023-06-10 09:30 | disposition home or self-care (01) ==
PROVIDERS: PCP Internal Medicine; Visit Provider Internal Medicine
DX: E11.9 Type 2 diabetes mellitus without complications (principal); I10 Essential (primary) hypertension; E78.5 Hyperlipidemia, unspecified; N40.0 Benign prostatic hyperplasia without lower urinary tract symptoms; N20.0 Calculus of kidney
CPT/HCPCS: 99214

== ENCOUNTER 2023-06-11 12:43 | Outpatient (REF) | payer BC, SELFPAY ==
[2023-06-11 17:12] LABS: Appearance Urine Clear; Color Urine Yellow; Glucose Urine UA Negative (Negative); Leukocyte Esterase Urine Negative (Negative); Nitrite Urine Negative (Negative); PH 5.5 (5.0-9.0); Urine Blood Negative (Negative); Urine Ketones Negative (Negative); Urine Protein Trace mg/dL (Neg-Trace)
[2023-06-11 17:15] LABS: Bacteria Urine None Seen (None Seen); Hyaline Casts Urine 0-2 /LPF (0-2); RBC Urine 0-2 /HPF (0-2); Squamous Epithelial Cell Urine 0-2 /HPF (0-2); WBC Urine 0-5 /HPF (0-5)
== END 2023-06-11 12:44 | disposition home or self-care (01) ==
LOC: HO.HMGCLDS 12:43
PROVIDERS: PCP Internal Medicine; Visit Provider Internal Medicine
DX: I10 Essential (primary) hypertension (principal); E78.5 Hyperlipidemia, unspecified; N40.0 Benign prostatic hyperplasia without lower urinary tract symptoms; E11.9 Type 2 diabetes mellitus without complications
CPT/HCPCS: 81001

== ENCOUNTER 2023-12-15 09:24 | Outpatient (REF) | payer BC, SELFPAY ==
[2023-12-15 10:13] LABS: MANUAL DIFF FLAG NO
[2023-12-15 10:18] LABS: Basophils Absolute Auto 0.1 X10*3/uL (0.0-0.2); Basophils Percent Auto 0.8 % (0-2); Eosinophils Absolute Auto 0.1 X10*3/uL (0.0-0.4); Eosinophils Percent Auto 1.5 % (0-4); Hematocrit 42.2 % (42.0-52.0); Hemoglobin 13.8 g/dl (14.0-18.0); Imm Gran Abs Auto 0.06 X10*3/uL (0.00-0.03); Imm Gran Pct Auto 0.8 % (0.0-0.4); Lymphocytes Absolute Auto 1.9 X10*3/uL (1.2-4.9); Mean Corpuscular HGB Conc 32.7 g/dl (31.0-36.0); Mean Corpuscular Hemoglobin 30.5 pg (27.0-33.0); Mean Corpuscular Volume 93.2 fL (80.0-98.0); Mean Platelet Volume 11.4 fL (9.4-12.4); Monocytes Absolute Auto 0.5 X10*3/uL (0.1-1.2); Monocytes Percent Auto 7.3 % (2-11); Neutrophils Absolute Auto 4.7 x10*3/uL (2.0-8.3); Neutrophils Percent Auto 63.6 % (45-73); Platelet Count 157 X10*3/uL (160-400); Red Blood Count 4.53 X10*6/uL (4.60-5.80); White Blood Count 7.4 X10*3/uL (4.8-10.8)
[2023-12-15 11:01] LABS: Estimated Average Glucose 123 mg/dL; Hemoglobin A1C 150.1009 umol/L; Hemoglobin A1c % 5.9 % (<6.0)
[2023-12-15 11:37] LABS: Creatinine Urine 217.94 mg/dL; Microalbum/Creatinine Ratio Ur 75.2 ug/mg cr (<30)
[2023-12-15 11:41] LABS: Alanine Aminotransferase 16 U/L (0-40); Albumin Level 4.6 g/dL (3.5-5.0); Alkaline Phosphatase 53 U/L (39-117); Anion Gap 14 (12-20); Aspartate Amino Transferase 15 U/L (5-37); Bilirubin Total 0.5 mg/dL (0.0-1.0); Blood Urea Nitrogen 17 mg/dL (9-16); Calcium 9.8 mg/dL (8.4-10.2); Carbon Dioxide 24 mmol/L (22-29); Chloride 106 mmol/L (96-108); Cholesterol 226 mg/dL (<200); Estimated Glomerular Filt Rate 57; Glucose Fasting 112 mg/dL (60-99); HDL Cholesterol 37 mg/dL (>40); LDL Cholesterol Calculated 130 mg/dL (<100); Potassium 4.1 mmol/L (3.3-5.1); Sodium 140 mmol/L (135-145); Total Protein 7.5 g/dL (6.5-8.0); Triglycerides 297 mg/dL (<150)
== END 2023-12-15 09:25 | disposition home or self-care (01) ==
LOC: HO.HMGCLDS 09:24
PROVIDERS: PCP Internal Medicine; Visit Provider Internal Medicine
DX: E11.9 Type 2 diabetes mellitus without complications (principal); I10 Essential (primary) hypertension; E78.5 Hyperlipidemia, unspecified; N40.0 Benign prostatic hyperplasia without lower urinary tract symptoms
CPT/HCPCS: 36415; 80053; 80061; 82043; 82570; 83036; 85025

== ENCOUNTER 2023-12-18 08:27 | Outpatient (AMB) | payer BC, SELFPAY ==
[2023-12-18 08:38] VITALS: BP 124/78; PULSE 72; O2SAT 96; BMI 31.8
--- NOTE | 2023-12-18 08:38 | A.OFFPC_ITS ---
Vital Signs 12/18/23 08:38 Height 5 ft 8 in Weight 209 lb BMI 31.8 BP 124/78 Blood Pressure Location Lt brachial Position Sitting Pulse 72 Pulse Source Pulse Oximeter Pulse Oximetry (%) 96 Oxygen Delivery Method Room Air Intake Visit Reasons: PE Intake Note: Pt is here today for PE. Allergies No Known Allergies Allergy (Verified 12/18/23 08:50) Medication List - Last Reconciled 12/18/23 by Leigh Duarte MD albuterol sulfate 90 mcg/actuation 2 puffs inhalation Q6H PRN atorvastatin 10 mg PO DAILY blood sugar diagnostic (FreeStyle Lite Strips) 1 qd blood-glucose meter (FreeStyle Lite Meter kit) As directed fenofibrate micronized 134 mg PO DAILY flu vac [id number] 36mos up(PF) mL IM hydrocortisone 2.5% (Proctosol HC) 1 appl [place] BID-QID PRN hydrocortisone acetate 25 mg [place] BID metformin 850 mg PO BID sildenafil mg PO tamsulosin 0.4 mg PO DAILY Tobacco use date assessed: 12/18/23 Dental Screening Dental Screen Date: 06/10/23 HPI PE HPI Details PATIENT PRESENTS FOR PHYSICAL PFSH Medical History Nicotine dependence, cigarettes, uncomplicated BPH (benign prostatic hyperplasia) Hyperlipidemia Type 2 diabetes mellitus Hypertension Surgical History History of colonoscopy Family History Father Unknown family medical history Mother Unknown family medical history Brother CAD (coronary artery disease) Social History Housing: House Patient Tobacco Use Status: Current everyday Tobacco user Cigarettes Per Day: 15 Years Smoked: (current smoker, onset 19yo, 3/4ppd x 42yrs, 30+PYH) e-Cigarette/Vaping Use: Never Used service: No Current occupational status: employed Current occupational exposures/hazards: No Cognitive needs: No Hearing needs: No Vision needs: Yes Questionnaire PHQ-9 Over the last 2 weeks, how often have you been bothered by any of the following problems? 1. Little interest or pleasure in doing things: not at all 2. Feeling down, depressed, or hopeless: not at all 3. Trouble falling or staying asleep, or sleeping too much: not at all 4. Feeling tired or having little energy: not at all 5. Poor appetite or overeating: not at all 6. Feeling bad about yourself - or that you are a failure or have let yourself or your family down: not at all 7. Trouble concentrating on things, such as reading the newspaper or watching television: not at all 8. Moving or speaking so slowly that other people could have noticed. Or the opposite - being so fidgety or restless that you have been moving around a lot more than usual: not at all 9. Thoughts that you would be better off or of hurting yourself in some way: not at all Total score: 0 Depression Screening Interpretation: Negative Depression Screening Done: Yes 80507 - PHQ-9 Billing: Yes Source: Developed by Drs. Julio César Cohn, Kaitlin Gtz, Kishore Silvestre and colleagues, with an educational gaurav from [employer]. Thrive Questionnaire Date Thrive assessed: 12/15/23 I am a: Patient What is your living situation today?: I have a steady place to live Within the past 12 months, did the food you bought not last and you didn't have the money to get more?: Never true Do you have trouble paying for medicines?: No Do you have trouble getting transportation to medical appointments?: No Do you have trouble paying your heating and electricity bill?: No Do you have trouble taking care of your child, family member or friend?: No Do you have trouble with day-to-day activities such as bathing, preparing meals, shopping, managing finances, etc.?: No Are you currently unemployed and looking for a job?: No Are you interested in more education?: No Please select the resources that you would like help with: None Currently or been in a relationship where the following occur: No concerns reported THRIVE Score: 0 AUDIT C Alcohol Use Questionnaire (AUDIT-C) 1. How often do you have a drink containing alcohol?: Monthly or less 3. How often do you have six or more drinks on one occasion?: Never Total Score: 1 ANTHONY-7 AMB Questionnaire ANTHONY-7 Date ANTHONY - 7 assessed: 12/18/23 Feeling nervous, anxious, or on edge: 0 = Not at all Not being able to stop or control worryin = Not at all Worrying too much about different things: 0 = Not at all Trouble relaxin = Not at all Being so restless that it is hard to sit still: 0 = Not at all Becoming easily annoyed or irritable: 0 = Not at all Feeling afraid as if something awful might happen: 0 = Not at all Total ANTHONY-7 score (0-4 normal; 5-9 mild; 10-14 moderate; 15-21 severe): 0 Source: Developed by Drs. Julio César Cohn, Kaitlin Gtz, Kishore Silvestre and colleagues, with an educational gaurav from [employer]. ANTHONY-7 Assessment Billing ANTHONY-7 Assessment Tool: ANTHONY-7 Assessment 10702 Review of Systems Const All systems reviewed & are unremarkable except as noted in HPI and below Reports no additional complaints Eyes Reports no additional complaints ENT Reports no additional complaints Card Reports no additional complaints Resp Reports no additional complaints GI Reports no additional complaints Physical exam (Primary Care) Vital Signs: Last Vital Signs Pulse 72 12/18/23 08:38 BP 124/78 12/18/23 08:38 Pulse Ox 96 12/18/23 08:38 Oxygen Delivery Method Room Air 12/18/23 08:38 BMI result Body Mass Index 31.8 Tobacco/Smoking Status: Tobacco use Status Tobacco use date assessed 12/18/23 12/18/23 08:51 Patient Tobacco Use Status Current everyday Tobacco 12/18/23 08:38 e-Cigarette/Vaping Use Never Used 12/18/23 08:38 PHQ-9: PHQ-9 Score PHQ-9: Total score 0 12/18/23 08:54 Depression Screening Interpretation: Negative Thrive Assessment: Date of Thrive Assessment Date Thrive assessed 12/15/23 12/18/23 08:38 Currently or been in a relationship where the following occur: No concerns reported Const General: no acute distress HENMT Ears: hearing grossly normal bilaterally Mouth: Normal oral and palatal mucosa present Eyes General: appearance normal, both eyes and all related structures Resp Effort & Inspection: normal respiratory effort Auscultation: clear to auscultation bilaterally Cardio Rhythm: regular rhythm Heart sounds: S1 normal heart sound present and S2 normal heart sound present GI Inspection: Yes normal to inspection Palpation (GI): Soft to palpation Percussion: Yes normal to percussion Auscultation: normal bowel sounds Assessment and Plan Assessment & Plan (1) Annual physical exam: Code(s): Z00.00 - Encounter for general adult medical examination without abnormal findings Plan: Well-balanced diet regular exercise discussed with the patient, patient is up-to-date with colonoscopy. (2) Type 2 diabetes mellitus: Code(s): E11.9 - Type 2 diabetes mellitus without complications Plan: A1c is 5.9, ADA diet regular exercise weight loss discussed with the patient continue metformin follow-up in 3 months (3) Hyperlipidemia: Code(s): E78.5 - Hyperlipidemia, unspecified Plan: Medication compliance discussed with the patient he was advised to restart atorvastatin and fenofibrate. (4) BPH (benign prostatic hyperplasia): Code(s): N40.0 - Benign prostatic hyperplasia without lower urinary tract symptoms Plan: Continue tamsulosin (5) Hypertension: Comment: Used to take olmesartan, off the medication Code(s): I10 - Essential (primary) hypertension Plan: Monitor blood pressure (6) Personal history of nicotine dependence: Comment: (current smoker, onset 19yo, 3/4ppd x 42yrs, 30+PYH) Code(s): Z87.891 - Personal history of nicotine dependence Plan: Tobacco quitting discussed with the patient. he declined a repeat lung cancer screening CT Medications: Changed From sildenafil PO To sildenafil 100 mg PO Q24H 20 tabs 2RF Coding Level of Care Code Est Pt Prev Care 40-64y(22369) Diagnoses Annual physical exam Z00.00 Type 2 diabetes mellitus E11.9 Hyperlipidemia E78.5 BPH (benign prostatic hyperplasia) N40.0 Hypertension I10 Personal history of nicotine dependence Z87.891 Additional Codes ANTHONY-7 Assessment Billing - ANTHONY-7 Assessment Tool: ANTHONY-7 Assessment 13851 ([id number])
== END 2023-12-18 09:22 | disposition home or self-care (01) ==
PROVIDERS: PCP Internal Medicine; Visit Provider Internal Medicine
DX: Z00.00 Encounter for general adult medical examination without abnormal findings (principal); E11.69 Type 2 diabetes mellitus with other specified complication; E78.5 Hyperlipidemia, unspecified; N40.0 Benign prostatic hyperplasia without lower urinary tract symptoms; I10 Essential (primary) hypertension; Z87.891 Personal history of nicotine dependence
CPT/HCPCS: 99396

== ENCOUNTER 2024-03-17 09:43 | Outpatient (REF) | payer BC, SELFPAY ==
[2024-03-17 13:20] LABS: MANUAL DIFF FLAG NO
[2024-03-17 13:32] LABS: Basophils Absolute Auto 0.1 X10*3/uL (0.0-0.2); Basophils Percent Auto 1.1 % (0-2); Eosinophils Absolute Auto 0.1 X10*3/uL (0.0-0.4); Eosinophils Percent Auto 1.6 % (0-4); Hematocrit 40.8 % (42.0-52.0); Hemoglobin 13.3 g/dl (14.0-18.0); Imm Gran Abs Auto 0.02 X10*3/uL (0.00-0.03); Imm Gran Pct Auto 0.4 % (0.0-0.4); Lymphocytes Absolute Auto 1.8 X10*3/uL (1.2-4.9); Mean Corpuscular HGB Conc 32.6 g/dl (31.0-36.0); Mean Corpuscular Hemoglobin 30.4 pg (27.0-33.0); Mean Corpuscular Volume 93.4 fL (80.0-98.0); Mean Platelet Volume 11.7 fL (9.4-12.4); Monocytes Absolute Auto 0.5 X10*3/uL (0.1-1.2); Monocytes Percent Auto 9.3 % (2-11); Neutrophils Absolute Auto 3.1 x10*3/uL (2.0-8.3); Neutrophils Percent Auto 55.6 % (45-73); Platelet Count 152 X10*3/uL (160-400); Red Blood Count 4.37 X10*6/uL (4.60-5.80); White Blood Count 5.6 X10*3/uL (4.8-10.8)
[2024-03-17 13:41] LABS: Estimated Average Glucose 126 mg/dL; Hemoglobin A1C 139.8953 umol/L; Total Hemoglobin (HGBA1C) 3309.0254 umol/L
[2024-03-17 13:51] LABS: Creatinine Urine 147.31 mg/dL; Microalbum/Creatinine Ratio Ur 48.8 ug/mg cr (<30)
[2024-03-17 13:54] LABS: PSA,Total (Free>4and<10) 0.39 ng/mL (0.00-4.00)
[2024-03-17 13:56] LABS: Albumin Level 4.6 g/dL (3.5-5.0); Alkaline Phosphatase 59 U/L (39-117); Anion Gap 16 (12-20); Aspartate Amino Transferase 28 U/L (5-37); Bilirubin Total 0.6 mg/dL (0.0-1.0); Blood Urea Nitrogen 20 mg/dL (9-16); Calcium 9.9 mg/dL (8.4-10.2); Carbon Dioxide 24 mmol/L (22-29); Chloride 105 mmol/L (96-108); Cholesterol 157 mg/dL (<200); Estimated Glomerular Filt Rate 58; Glucose Fasting 122 mg/dL (60-99); HDL Cholesterol 36 mg/dL (>40); Iron 113 mcg/dL (45-160); LDL Cholesterol Calculated 92 mg/dL (<100); Percent Iron Saturation 38 % (15-50); Potassium 4.1 mmol/L (3.3-5.1); Sodium 141 mmol/L (135-145); Total Iron Binding Capacity 300 mcg/dL (228-428); Total Protein 7.4 g/dL (6.5-8.0); Triglycerides 148 mg/dL (<150); Unsaturated Iron Binding 187 ug/dL
[2024-03-17 14:08] LABS: Folate 9.8 ng/mL (> or = 4.0); Vitamin B12 328 pg/mL (200-900)
[2024-03-17 14:16] LABS: Alanine Aminotransferase 31 U/L (0-40)
== END 2024-03-17 09:44 | disposition home or self-care (01) ==
LOC: HO.HMGCLDS 09:43
PROVIDERS: PCP Internal Medicine; Visit Provider Internal Medicine
DX: N20.0 Calculus of kidney (principal); E11.9 Type 2 diabetes mellitus without complications; I10 Essential (primary) hypertension; E78.5 Hyperlipidemia, unspecified; N40.0 Benign prostatic hyperplasia without lower urinary tract symptoms; Z12.5 Encounter for screening for malignant neoplasm of prostate
CPT/HCPCS: 36415; 80053; 80061; 82043; 82570; 82607; 82746; 83036; 83540; 84153; 85025

== ENCOUNTER 2024-03-23 11:07 | Outpatient (AMB) | payer BC, SELFPAY ==
[2024-03-23 11:24] VITALS: BP 144/80; PULSE 83; O2SAT 97; BMI 32.2
--- NOTE | 2024-03-23 11:24 | MHC.PC.OV ---
Vital Signs 03/23/24 11:24 Height 5 ft 8 in Weight 212 lb BMI 32.2 BP 144/80 H Blood Pressure Location Rt brachial Position Sitting Pulse 83 Pulse Source Pulse Oximeter Pulse Oximetry (%) 97 Intake Visit Reasons: 3 months f/up Allergies No Known Allergies Allergy (Verified 03/23/24 11:26) Medication List - Last Reconciled 03/23/24 by Leigh Duarte MD albuterol sulfate 90 mcg/actuation 2 puffs inhalation Q6H PRN atorvastatin 10 mg PO DAILY blood sugar diagnostic (FreeStyle Lite Strips) 1 qd blood-glucose meter (FreeStyle Lite Meter kit) As directed fenofibrate micronized 134 mg PO DAILY hydrocortisone 2.5% (Proctosol HC) 1 appl [place] BID-QID PRN hydrocortisone acetate 25 mg [place] BID metformin 850 mg PO BID olmesartan 20 mg PO DAILY sildenafil 100 mg PO Q24H tamsulosin 0.4 mg PO DAILY Tobacco use date assessed: 12/18/23 Dental Screening Dental Screen Date: 06/10/23 HPI 3 months f/up HPI Details Pt presents for f/u hyperlipid, DM2, stable on meds. PFSH Medical History Nicotine dependence, cigarettes, uncomplicated BPH (benign prostatic hyperplasia) Hyperlipidemia Type 2 diabetes mellitus Hypertension Surgical History History of colonoscopy Family History Father Unknown family medical history Mother Unknown family medical history Brother CAD (coronary artery disease) Social History Housing: House Patient Tobacco Use Status: Current everyday Tobacco user Cigarettes Per Day: 15 Years Smoked: (current smoker, onset 19yo, 3/4ppd x 42yrs, 30+PYH) e-Cigarette/Vaping Use: Never Used service: No Current occupational status: employed Current occupational exposures/hazards: No Cognitive needs: No Hearing needs: No Vision needs: Yes Questionnaire PHQ-9 Over the last 2 weeks, how often have you been bothered by any of the following problems? 1. Little interest or pleasure in doing things: not at all Source: Developed by Drs. Julio César Cohn, Kaitlin Gtz, Kishore Silvestre and colleagues, with an educational gaurav from [employer]. Thrive Questionnaire Date Thrive assessed: 12/15/23 I am a: Patient What is your living situation today?: I have a steady place to live Within the past 12 months, did the food you bought not last and you didn't have the money to get more?: Never true Within the past 12 months, did you worry whether your food would run out before you got money to buy more?: Sometimes True Do you have trouble paying for medicines?: No Do you have trouble getting transportation to medical appointments?: No Do you have trouble paying your heating and electricity bill?: No Do you have trouble taking care of your child, family member or friend?: No Do you have trouble with day-to-day activities such as bathing, preparing meals, shopping, managing finances, etc.?: No Are you currently unemployed and looking for a job?: No Are you interested in more education?: No Please select the resources that you would like help with: None Currently or been in a relationship where the following occur: No concerns reported THRIVE Score: 1 AUDIT C Alcohol Use Questionnaire (AUDIT-C) 2. How many drinks containing alcohol do you have on a typical day when you are drinking?: 1 or 2 Total Score: 0 ANTHONY-7 AMB Questionnaire ANTHONY-7 Date ANTHONY - 7 assessed: 12/18/23 Source: Developed by Drs. Julio César Cohn, Kaitlin Gtz, Kishore Silvestre and colleagues, with an educational gaurav from [employer]. Review of Systems Const All systems reviewed & are unremarkable except as noted in HPI and below Reports no additional complaints Eyes Reports no additional complaints ENT Reports no additional complaints Card Reports no additional complaints Resp Reports no additional complaints GI Reports no additional complaints Reports no additional complaints Physical exam (Primary Care) Vital Signs: Last Vital Signs Pulse 83 03/23/24 11:24 BP 144/80 H 03/23/24 11:24 Pulse Ox 97 03/23/24 11:24 BMI result Body Mass Index 32.2 Tobacco/Smoking Status: Tobacco use Status Tobacco use date assessed 12/18/23 03/23/24 11:27 Patient Tobacco Use Status Current everyday Tobacco 03/23/24 11:27 e-Cigarette/Vaping Use Never Used 03/23/24 11:27 Thrive Assessment: Date of Thrive Assessment Date Thrive assessed 12/15/23 03/23/24 11:27 Currently or been in a relationship where the following occur: No concerns reported Const General: no acute distress HENMT Head: Yes normal to inspection Ears: hearing grossly normal bilaterally Face and sinus: Yes normal facial exam Throat: Yes posterior oropharynx normal Neck Neck: Yes supple Resp Effort & Inspection: normal respiratory effort Auscultation: clear to auscultation bilaterally Cardio Rhythm: regular rhythm Heart sounds: S1 normal heart sound present and S2 normal heart sound present Coding Level of Care Code Est Pt Level 4 (68821) Diagnoses Hypertension I10 Type 2 diabetes mellitus E11.9 Hyperlipidemia E78.5 Assessment & Plan Assessment & Plan (1) Hypertension: Comment: Used to take olmesartan, off the medication Code(s): I10 - Essential (primary) hypertension Category: Medical Plan: Restart 20 mg of olmesartan (2) Type 2 diabetes mellitus: Code(s): E11.9 - Type 2 diabetes mellitus without complications Category: Medical Plan: A1c is 6.0. Continue ADA diet increase physical activity continue metformin follow-up in 3 months with a fasting labs before (3) Hyperlipidemia: Code(s): E78.5 - Hyperlipidemia, unspecified Category: Medical Plan: Continue fenofibrate and atorvastatin Orders: Orders Comprehensive [place]. Panel Fast 3 Months E11.9 - Type 2 diabetes mellitus without complications, E78.5 - Hyperlipidemia, unspecified, I10 - Essential (primary) hypertension Complete Blood Count Auto Diff 3 Months E11.9 - Type 2 diabetes mellitus without complications, E78.5 - Hyperlipidemia, unspecified, I10 - Essential (primary) hypertension Microalbumin, Random (w Creat) 3 Months E11.9 - Type 2 diabetes mellitus without complications, E78.5 - Hyperlipidemia, unspecified, I10 - Essential (primary) hypertension Hemoglobin A1c 3 Months E11.9 - Type 2 diabetes mellitus without complications, E78.5 - Hyperlipidemia, unspecified, I10 - Essential (primary) hypertension Lipid Panel 3 Months E11.9 - Type 2 diabetes mellitus without complications, E78.5 - Hyperlipidemia, unspecified, I10 - Essential (primary) hypertension Medications: New olmesartan 20 mg PO DAILY 90 tabs 3RF
== END 2024-03-23 11:47 | disposition home or self-care (01) ==
PROVIDERS: PCP Internal Medicine; Visit Provider Internal Medicine
DX: I10 Essential (primary) hypertension (principal); E11.9 Type 2 diabetes mellitus without complications; E78.5 Hyperlipidemia, unspecified

== ENCOUNTER → 2024-03-23 11:07 | Outpatient (BNVA) | payer BC, SELFPAY | PROVIDERS: PCP Internal Medicine; Visit Provider Internal Medicine ==

== ENCOUNTER 2024-06-16 11:12 | Outpatient (REF) | payer BC, SELFPAY ==
[2024-06-16 13:39] LABS: MANUAL DIFF FLAG NO
[2024-06-16 13:51] LABS: Estimated Average Glucose 126 mg/dL; Hemoglobin A1C 139.9487 umol/L; Total Hemoglobin (HGBA1C) 3321.7449 umol/L
[2024-06-16 13:54] LABS: Basophils Absolute Auto 0.1 X10*3/uL (0.0-0.2); Basophils Percent Auto 0.9 % (0-2); Eosinophils Absolute Auto 0.1 X10*3/uL (0.0-0.4); Eosinophils Percent Auto 1.1 % (0-4); Hematocrit 38.1 % (42.0-52.0); Hemoglobin 12.7 g/dl (14.0-18.0); Imm Gran Abs Auto 0.04 X10*3/uL (0.00-0.03); Imm Gran Pct Auto 0.7 % (0.0-0.4); Lymphocytes Absolute Auto 1.6 X10*3/uL (1.2-4.9); Lymphocytes Percent Auto 29.3 % (20-40); Mean Corpuscular HGB Conc 33.3 g/dl (31.0-36.0); Mean Corpuscular Hemoglobin 31.1 pg (27.0-33.0); Mean Corpuscular Volume 93.4 fL (80.0-98.0); Monocytes Absolute Auto 0.5 X10*3/uL (0.1-1.2); Monocytes Percent Auto 8.8 % (2-11); Neutrophils Absolute Auto 3.3 x10*3/uL (2.0-8.3); Neutrophils Percent Auto 59.2 % (45-73); Platelet Count 166 X10*3/uL (160-400); Red Blood Count 4.08 X10*6/uL (4.60-5.80); Red Cell Distribution Width 13.2 % (11.0-16.0); White Blood Count 5.6 X10*3/uL (4.8-10.8)
--- OUTSIDE RECORDS SUMMARY | 2024-06-16 14:03 | XMS_ITS | Continuity of Care Document ---
Author Organization [facility] [place] [address] [place] [address]- Care Team Providers Care Superior Court Clerk Name Role Phone Leigh Duarte MD Primary Care Physician [phone] Encounter 05/14/24 - 05/21/24 [facility] [address], [address] [place] [address]- Attending Physician: Walt Corbett MD Admitting Physician: Walt Corbett MD Referring Physician: Walt Corbett MD Encounter Type: OutPatient One Time Allergies, Adverse Reactions, Alerts No Known Medication Allergies Medications atorvastatin 10 mg oral tablet 1 tablet = 10 mg, By Mouth, Daily, # 30 tablet, 0 Refills, Maintenance, 04/13/23 7:41:00 PM EST, Partial fill upon patient request if the prescription is for a schedule II opioid drug. Start Date: 04/13/23 Status: Ordered Quantity: 30.0 Unit: tablet Repeat number: 1 Benicar 20 mg oral tablet 1 tablet = 20 mg, By Mouth, Daily, # 30 tablet, 0 Refills, Maintenance, 07/30/22 3:40:00 PM EDT, Tablet, Partial fill upon patient request if the prescription is for a schedule II opioid drug. Start Date: 07/30/22 Status: Ordered Quantity: 30.0 Unit: tablet Repeat number: 1 fenofibrate 134 mg oral capsule 1 capsule = 134 mg, By Mouth, Daily, # 30 capsule, 0 Refills, Maintenance, 04/13/23 7:41:00 PM EST,Capsule, Partial fill upon patient request if the prescription is for a schedule II opioid drug. Start Date: 04/13/23 Status: Ordered Quantity: 30.0 Unit: capsule Repeat number: 1 Flomax 0.4 mg oral capsule 0.4 mg, By Mouth, Daily at bedtime, # 30 tablet, Refills 0, Tot. Refills 0, Maintenance, 04/15/23 10:07:00 AM EST, Route to Pharmacy Electronically, [id number], Partial fill upon patient request if the prescription is for a schedule II opioid drug., 179, cm, 04/15/23 6:36:00 EST, Height, 92, kg, 04/14/23 17:20:00 EST, Dry Weight Start Date: 04/15/23 Stop Date: 05/15/23 Status: Ordered Quantity: 30.0 Unit: tablet Repeat number: 1 metFORMIN 850 mg oral tablet TAKE 1 TABLET BY MOUTH TWICE DAILY Start Date: 04/13/23 Status: Ordered Repeat number: 1 Problem List Condition Confirmation Course Effective Dates Status Health St [facility] Informant HLD (hyperlipidemia) Confirmed Active HTN (hypertension) Confirmed Active Non-insulin treated type 2 diabetes mellitus Confirmed Active Results Radiology Reports * Exam Date Time Procedure Performing Provider Status 05/14/24 1:00 PM US Renal Bladder Esther Gtz; Terry (Verified) Notes: (US Renal Bladder) Reason For Exam: Calculus of ureter RESULT: US Renal Bladder US Renal Bladder Reason: Calculus of ureter COMPARISON: 05/20/2023 FINDINGS: Right kidney: 12.5 cm in length. No hydronephrosis. Normal parenchymal thickness and echotexture. No stones. Probable 0.6 cm cyst in the interpolar region. Left kidney: 11 cm in length. No hydronephrosis. Normal parenchymal thickness and echotexture. No stones. No suspicious mass. Urinary bladder: Incompletely distended, but no definite evidence of stone, mass or debris. Bilateral ureteral jets are identified on color Doppler imaging suggesting ureterovesicular junction patency. Prostate: 3.9 x 3.9 x 4.6 cm, volume 36 cc. Included liver parenchyma is echogenic which may represent hepatic steatosis or hepatocellular disease. IMPRESSION: No evidence of hydronephrosis or echogenic shadowing renal calculus Probable small cortical cyst on the right WSN: [id number] Ordering Physician: Walt Corbett Dictated By: Ritesh Angel Jr, MD Dictated Date/Time: 05/14/24 1:24 pm Reviewed By: Ritesh Angel Jr, MD Signed By: Ritesh Angel Jr, MD Signed Date/Time: 05/14/24 1:24 pm Transcribed By: ALEXYS Transcribed Date/Time: 05/14/24 1:20 pm Social History Social History Type Response Smoking Status Never (less than 100 in lifetime) entered on: 04/14/23 Sex Sex Representation Male (finding) Patient Care team information Care Team Personnel Name: Leigh Duarte MD Position: [facility] Physician - Primary Care Member Role: PCP Address: [address] [place] [address]- Telecom: Name: Leslye Carreno LPN Position: [facility] RN Member Role: Primary Care Nurse Name: Walt Corbett MD Position: [facility] Physician - Urology Med Service: Urology Member Role: Ordering Physician Address: [address] [place] [address] [address] [facility], [address] Telecom: Care Team Related Persons Name: JADE KILGORE Name: DENISE KILGORE Name: JEANETTE KILGORE Insurance Providers Guarantor name: BRODIE KILGORE Health Plan Information #: 1 Payer: [employer] Member Number: [id number] Policy Number: NA Group Number: [id number] Health Plan Information #: 2 Payer: [employer]LECT Member Number: [id number] Policy Number: NA Group Number: [id number]
--- OUTSIDE RECORDS SUMMARY | 2024-06-16 14:03 | XMS_ITS | Clinical Summary ---
Author Organization [facility] Address [address] [place] [address] Care Team Providers Care Hepatology Physician Name Role Phone Leigh Duarte MD Primary Care Provider [phone] Social History Tobacco Use Types Packs/Day Years Used Date Smoking Tobacco: Never Assessed Sex and Gender Information Value Date Recorded Sex Assigned at Not on file Legal Sex Male 11:54 AM EST Gender Identity Not on file Sexual Orientation Not on file Plan of Treatment Health Maintenance Due Date Last Done Comments DTaP,Tdap,and Td Vaccines (1 - Tdap) 1980 Pneumococcal Vaccine: 50+ Ye ars (1 of 1 - PCV) 2011 Zoster Vaccines (1 of 2) 2011 COVID-19 Vaccine ( - 2023-2 5 season) 2023 Influenza Vaccine (#1) 2023 RSV Immunization Patients 60 + Years Old (1 - 1-dose 75+ series) 2036 HIB Vaccines Aged Out No longer eligi ble based on patient's age to complete this topic HPV Vaccines Aged Out No longer eligi ble based on patient's age to complete this topic Hepatitis A Vaccines Aged Out No long er eligible based on patient's age to complete this topic Hepatitis B Vaccines Aged Out No long er eligible based on patient's age to complete this topic IPV Vaccines Aged Out No longer eligi ble based on patient's age to complete this topic MMR Vaccines Aged Out No longer eligi ble based on patient's age to complete this topic Meningococcal ACWY Vaccine Aged Out N o longer eligible based on patient's age to complete this topic Meningococcal B Vacine Aged Out No lo nger eligible based on patient's age to complete this topic Pneumococcal Vaccine: Pediat rics (0 to 5 Years) and At-Risk Patients (6 to 64 Years) Aged Out No longer eligible b ased on patient's age to complete this topic RSV Immunization Patients Un feliz 20 months Aged Out No longer eligible b ased on patient's age to complete this topic Varicella Vaccines Aged Out No longer eligible based on patient's age to complete this topic Care Teams Hepatology Physician Relationship Specialty Start Date End Date Leigh Duarte MD PCP - General Internal Medicine 06/11/19
[2024-06-16 14:19] LABS: Microalbum/Creatinine Ratio Ur 17.5 ug/mg cr (<30)
[2024-06-16 14:30] LABS: Alanine Aminotransferase 24 U/L (0-40); Albumin Level 4.6 g/dL (3.5-5.0); Alkaline Phosphatase 56 U/L (39-117); Anion Gap 13 (12-20); Aspartate Amino Transferase 26 U/L (5-37); Bilirubin Total 0.6 mg/dL (0.0-1.0); Blood Urea Nitrogen 24 mg/dL (9-16); Carbon Dioxide 21 mmol/L (22-29); Chloride 108 mmol/L (96-108); Cholesterol 154 mg/dL (<200); Estimated Glomerular Filt Rate 50; Glucose Fasting 103 mg/dL (60-99); HDL Cholesterol 34 mg/dL (>40); LDL Cholesterol Calculated 86 mg/dL (<100); Potassium 4.3 mmol/L (3.3-5.1); Sodium 138 mmol/L (135-145); Total Protein 7.9 g/dL (6.5-8.0); Triglycerides 172 mg/dL (<150)
== END 2024-06-16 11:13 | disposition home or self-care (01) ==
LOC: HO.HMGCLDS 11:12
PROVIDERS: PCP Internal Medicine; Visit Provider Internal Medicine
DX: E11.9 Type 2 diabetes mellitus without complications (principal); I10 Essential (primary) hypertension; E78.5 Hyperlipidemia, unspecified
CPT/HCPCS: 36415; 80053; 80061; 82043; 82570; 83036; 85025

== ENCOUNTER 2024-06-22 09:58 | Outpatient (AMB) | payer BC, SELFPAY ==
[2024-06-22 10:03] VITALS: BP 122/64; PULSE 81; RESP 18; TEMP 36.9; O2SAT 95; BMI 32.2
--- NOTE | 2024-06-22 10:03 | A.OFFPC_ITS ---
Vital Signs 06/22/24 10:03 Height 5 ft 8 in Weight 212 lb BMI 32.2 BP 122/64 Blood Pressure Location Lt brachial Position Sitting Respiration 18 Pulse 81 Pulse Source Pulse Oximeter Temp 98.4 F Temp Source Oral Pulse Oximetry (%) 95 Oxygen Delivery Method Room Air Intake Visit Reasons: 3 months f/up Intake Note: Pt is here today for 3 months follow up visit on labs. Allergies No Known Allergies Allergy (Verified 06/22/24 10:07) Medication List - Last Reconciled 06/22/24 by Leigh Duarte MD albuterol sulfate 90 mcg/actuation 2 puffs inhalation Q6H PRN atorvastatin 10 mg PO DAILY blood sugar diagnostic (FreeStyle Lite Strips) 1 qd blood-glucose meter (FreeStyle Lite Meter kit) As directed fenofibrate micronized 134 mg PO DAILY metformin 850 mg PO BID olmesartan 20 mg PO DAILY sildenafil 100 mg PO Q24H tamsulosin 0.4 mg PO DAILY Tobacco use date assessed: 06/22/24 Dental Screening Dental Screen Date: 06/22/24 Did you have a dental visit in the last 12 months?: Yes Did you have a dental problem in the last 6 months where you did not have access to dental care?: No Was dental information given to patient?: Patient has dentist HPI 3 months f/up HPI Details Patient presents for the follow-up of type 2 diabetes hypertension hyperlipidemia. He complains of sinus congestion and pain, postnasal drip green discharge for 2 weeks. [facility] Medical History Nicotine dependence, cigarettes, uncomplicated BPH (benign prostatic hyperplasia) Hyperlipidemia Type 2 diabetes mellitus Hypertension Surgical History History of colonoscopy Family History Father Unknown family medical history Mother Unknown family medical history Brother CAD (coronary artery disease) Social History Housing: House Patient Tobacco Use Status: Current everyday Tobacco user Cigarettes Per Day: 15 Years Smoked: (current smoker, onset 19yo, 3/4ppd x 42yrs, 30+PYH) e-Cigarette/Vaping Use: Never Used service: No Current occupational status: employed Current occupational exposures/hazards: No Cognitive needs: No Hearing needs: No Vision needs: Yes Questionnaire PHQ-9 Over the last 2 weeks, how often have you been bothered by any of the following problems? 1. Little interest or pleasure in doing things: not at all 2. Feeling down, depressed, or hopeless: not at all 3. Trouble falling or staying asleep, or sleeping too much: not at all 4. Feeling tired or having little energy: not at all 5. Poor appetite or overeating: not at all 6. Feeling bad about yourself - or that you are a failure or have let yourself or your family down: not at all 7. Trouble concentrating on things, such as reading the newspaper or watching television: not at all 8. Moving or speaking so slowly that other people could have noticed. Or the opposite - being so fidgety or restless that you have been moving around a lot more than usual: not at all 9. Thoughts that you would be better off or of hurting yourself in some way: not at all Total score: 0 Depression Screening Interpretation: Negative Depression Screening Done: Yes 61866 - PHQ-9 Billing: Yes Source: Developed by Drs. Julio César Cohn, Kaitlin Gtz, Kishore Silvestre and colleagues, with an educational gaurav from [employer]. Thrive Questionnaire Date Thrive assessed: 06/22/24 I am a: Patient What is your living situation today?: I have a steady place to live Within the past 12 months, did the food you bought not last and you didn't have the money to get more?: Never true Within the past 12 months, did you worry whether your food would run out before you got money to buy more?: Never true Do you have trouble paying for medicines?: No Do you have trouble getting transportation to medical appointments?: No Do you have trouble paying your heating and electricity bill?: No Do you have trouble taking care of your child, family member or friend?: No Do you have trouble with day-to-day activities such as bathing, preparing meals, shopping, managing finances, etc.?: No Are you currently unemployed and looking for a job?: No Are you interested in more education?: No Please select the resources that you would like help with: None Currently or been in a relationship where the following occur: No concerns reported THRIVE Score: 0 AUDIT C Alcohol Use Questionnaire (AUDIT-C) 1. How often do you have a drink containing alcohol?: Monthly or less 2. How many drinks containing alcohol do you have on a typical day when you are drinking?: 1 or 2 3. How often do you have six or more drinks on one occasion?: Never Total Score: 1 ANTHONY-7 AMB Questionnaire ANTHONY-7 Date ANTHONY - 7 assessed: 06/22/24 Feeling nervous, anxious, or on edge: 0 = Not at all Not being able to stop or control worryin = Not at all Worrying too much about different things: 0 = Not at all Trouble relaxin = Not at all Being so restless that it is hard to sit still: 0 = Not at all Becoming easily annoyed or irritable: 0 = Not at all Feeling afraid as if something awful might happen: 0 = Not at all Total ANTHONY-7 score (0-4 normal; 5-9 mild; 10-14 moderate; 15-21 severe): 0 Source: Developed by Drs. Julio César Cohn, Kaitlin Gtz, Kishore Silvestre and colleagues, with an educational gaurav from [employer]. ANTHONY-7 Assessment Billing ANTHONY-7 Assessment Tool: ANTHONY-7 Assessment 93982 Review of Systems Const All systems reviewed & are unremarkable except as noted in HPI and below Eyes Reports no additional complaints ENT Reports no additional complaints Card Reports no additional complaints Resp Reports no additional complaints GI Reports no additional complaints Reports no additional complaints Physical exam (Primary Care) Vital Signs: Last Vital Signs Temp 98.4 F 06/22/24 10:03 Pulse 81 06/22/24 10:03 Resp 18 06/22/24 10:03 BP 122/64 06/22/24 10:03 Pulse Ox 95 06/22/24 10:03 Oxygen Delivery Method Room Air 06/22/24 10:03 BMI result Body Mass Index 32.2 Tobacco/Smoking Status: Tobacco use Status Tobacco use date assessed 06/22/24 06/22/24 10:08 Patient Tobacco Use Status Current everyday Tobacco 06/22/24 10:05 e-Cigarette/Vaping Use Never Used 06/22/24 10:05 PHQ-9: PHQ-9 Score PHQ-9: Total score 0 06/22/24 10:14 Depression Screening Interpretation: Negative Thrive Assessment: Date of Thrive Assessment Date Thrive assessed 06/22/24 06/22/24 10:14 Currently or been in a relationship where the following occur: No concerns reported Const General: no acute distress HENMT General nose exam: Abnormal mucous membranes and turbinates present erythematous Face and sinus: Yes sinus tenderness Throat: Yes postnasal drainage Eyes General: appearance normal, both eyes and all related structures Resp Effort & Inspection: normal respiratory effort Auscultation: clear to auscultation bilaterally Cardio Rhythm: regular rhythm Heart sounds: S1 normal heart sound present and S2 normal heart sound present GI Inspection: Yes normal to inspection Coding Level of Care Code Est Pt Level 4 (56083) Diagnoses Hypertension I10 Type 2 diabetes mellitus E11.9 Hyperlipidemia E78.5 BPH (benign prostatic hyperplasia) N40.0 Nephrolithiasis N20.0 CKD stage 3a, GFR 45-59 ml/min N18.31 Additional Codes ANTHONY-7 Assessment Billing - ANTHONY-7 Assessment Tool: ANTHONY-7 Assessment 08151 ([id number]) PHQ-9 - 81767 - PHQ-9 Billing: Yes ([id number]) Assessment & Plan Assessment & Plan (1) Hypertension: Code(s): I10 - Essential (primary) hypertension Category: Medical Plan: Continue olmesartan low-sodium diet (2) Type 2 diabetes mellitus: Code(s): E11.9 - Type 2 diabetes mellitus without complications Category: Medical Plan: A1c is 6.0, ADA diet regular exercise weight loss discussed with the patient continue metformin (3) Hyperlipidemia: Code(s): E78.5 - Hyperlipidemia, unspecified Category: Medical Plan: Continue statin (4) BPH (benign prostatic hyperplasia): Code(s): N40.0 - Benign prostatic hyperplasia without lower urinary tract symptoms Category: Medical Plan: Continue tamsulosin (5) Nephrolithiasis: Comment: hx of renal colic 04/12, f/u urology, normal renal ultrasound by [facility] 05/2024 Code(s): N20.0 - Calculus of kidney Category: Medical Plan: Follow-up with urology (6) CKD stage 3a, GFR 45-59 ml/min: Code(s): N18.31 - Chronic kidney disease, stage 3a Category: Medical Plan: INCREASE FLUID INTAKE AVOID NEPHROTOXINS DISCUSSED WITH THE PATIENT, check basic metabolic panel in 1 month and follow-up in 3 months Orders: Orders Basic Metabolic Panel 1 Month I10 - Essential (primary) hypertension Microalbumin, Random (w Creat) 3 Months E11.9 - Type 2 diabetes mellitus without complications, E78.5 - Hyperlipidemia, unspecified, I10 - Essential (primary) hypertension Comprehensive [place]. Panel Fast 3 Months E11.9 - Type 2 diabetes mellitus without complications, E78.5 - Hyperlipidemia, unspecified, I10 - Essential (primary) hypertension Hemoglobin A1c 3 Months E11.9 - Type 2 diabetes mellitus without complications, E78.5 - Hyperlipidemia, unspecified, I10 - Essential (primary) hypertension Lipid Panel 3 Months E11.9 - Type 2 diabetes mellitus without complications, E78.5 - Hyperlipidemia, unspecified, I10 - Essential (primary) hypertension Complete Blood Count Auto Diff 3 Months E11.9 - Type 2 diabetes mellitus without complications, E78.5 - Hyperlipidemia, unspecified, I10 - Essential (primary) hypertension Medications: New azithromycin For 250 mg dose pack: take 500 mg today (day 1), then 250 mg for 4 days (days 2-5) PO 6 tabs 0RF Refilled blood sugar diagnostic (FreeStyle Lite Strips) 1 qd 100 ea 3RF atorvastatin 10 mg PO DAILY 90 tabs 3RF olmesartan 20 mg PO DAILY 90 tabs 3RF fenofibrate micronized 134 mg PO DAILY 90 caps 3RF metformin 850 mg PO BID 180 tabs 4RF tamsulosin 0.4 mg PO DAILY 90 caps 3RF
--- OUTSIDE RECORDS SUMMARY | 2024-06-22 11:54 | XMS_ITS | Clinical Summary ---
Author Organization [facility] ity Address [address] [place] [address] Care Team Providers Care Varnishing Unit Tool Setter Name Role Phone Leigh Duarte MD Primary Care Provider [phone] Social History Tobacco Use Types Packs/Day Years [...] age to complete this topic Care Teams Varnishing Unit Tool Setter Relationship Specialty Start Date End Date Leigh Duarte MD PCP - General Internal Medicine 06/11/19
== END 2024-06-22 10:34 | disposition home or self-care (01) ==
PROVIDERS: PCP Internal Medicine; Visit Provider Internal Medicine
DX: I12.9 Hypertensive chronic kidney disease with stage 1 through stage 4 chronic kidney disease, or unspecified chronic kidney disease (principal); E11.9 Type 2 diabetes mellitus without complications; N18.31 Chronic kidney disease, stage 3a; E78.5 Hyperlipidemia, unspecified; N40.0 Benign prostatic hyperplasia without lower urinary tract symptoms; N20.0 Calculus of kidney

== ENCOUNTER → 2024-06-22 09:58 | Outpatient (BNVA) | payer BC, SELFPAY | PROVIDERS: PCP Internal Medicine; Visit Provider Internal Medicine | DX: I12.9 Hypertensive chronic kidney disease with stage 1 through stage 4 chronic kidney disease, or unspecified chronic kidney disease (principal); E11.22 Type 2 diabetes mellitus with diabetic chronic kidney disease; N18.31 Chronic kidney disease, stage 3a; E78.5 Hyperlipidemia, unspecified; N40.0 Benign prostatic hyperplasia without lower urinary tract symptoms; N20.0 Calculus of kidney; Z79.899 Other long term (current) drug therapy | CPT/HCPCS: 96127 ==

== ENCOUNTER 2024-07-26 12:22 | Outpatient (REF) | payer BC, SELFPAY ==
--- OUTSIDE RECORDS SUMMARY | 2024-07-26 14:41 | XMS_ITS | Encounter Summary ---
Author Organization [facility] Address [address] [place] [address] Care Team Providers Care Cook Short Order Name Role Phone Leigh Duarte MD Primary Care Provider [phone] Reason for Visit * Reason Onset Date Comments special procedure 07/21/2024 Encounter Details Date Type Department Care Team (Late st Contact Info) Description 07/21/2024 Telephone Gastroenterology - [place] [address] [facility] [address] [place] [address] Yecenia Fischer MD [address] [place] [address] special procedure Social History Tobacco Use Types Packs/Day Years Used Date Smoking Tobacco: Never Assessed Sex and Gender Information Value Date Recorded Sex Assigned at Not on file Legal Sex Male 11:54 AM EST Gender Identity Not on file Sexual Orientation Not on file documented as of this encounter Progress Notes * Selena Garg MA - 07/22/2024 2:43 PM EDT RESCHEDULED * Teresa Cantu - 07/22/2024 2:05 PM EDT Patient returning call to reschedule colonoscopy, needs a friday * Selena Garg MA - 07/21/2024 3:42 PM EDT PROCEDURE CANCELED LEFT MESSAGE TO CALL AND RESCHEDULE * Teresa Cantu - 07/21/2024 2:49 PM EDT Patient calling to reschedule colonoscopy 10/15 due to needing a Friday appt. Patient gave permission to speak with daughter, demetrius, # [phone]. documented in this encounter Plan of Treatment Not on file documented as of this encounter Visit Diagnoses Not on filedocumented in this encounter Care Teams Cook Short Order Relationship Specialty Start Date End Date Leigh Duarte MD PCP - General Internal Medicine 06/11/19 documented as of this encounter
--- OUTSIDE RECORDS SUMMARY | 2024-07-26 14:41 | XMS_ITS | Clinical Summary ---
Author Organization [address] [place] [address] [place] [phone] Phone Care Team Providers Care Supervisor Costuming Name Role Phone Leigh Duarte MD Primary Care Provider [phone] Allergies No known active allergies Medications atorvastatin (LIPITOR) 10 mg tablet Take 1 tablet (10 mg total) by mouth. Active olmesartan (BENICAR) 20 mg tablet Take 1 tablet (20 mg total) by mouth. Active sildenafiL (VIAGRA) 100 mg tablet Take 1 tablet (100 mg total) by mouth. Active fenofibrate micronized (LOFIBRA) 134 mg capsule Take 1 capsule (134 mg total) by mouth 1 (one) time each day with breakfast. Active albuterol HFA (PROAIR HFA ; PROVENTIL HFA ; VENTOLIN HFA) 90 mcg/actuation inhaler Inhale 2 puffs by mouth every 6 (six) hours if needed for wheezing. Active metFORMIN (GLUCOPHAGE) 850 mg tablet Take 1 tablet (850 mg total) by mouth 2 (two) times a day with meals. Active tamsulosin (FLOMAX) 0.4 mg 24 hr capsule Take 1 capsule (0.4 mg total) by mouth 1 (one) time each day. Capsules should be taken 30 minutes following the same meal each day. Active Encounters Date Type Department Care Team Description 07/21/2024 Telephone Gastroenterology [facility] [address] [phone] Yecenia Fischer MD special procedure 07/07/2024 Telephone Gastroenterology [facility] [address] [phone] Yecenia Fischer MD special procedure from Last 3 Months Social History Tobacco Use Types Packs/Day Years [...] Vaccine ( - 2023-2 5 season) 2023 Cholesterol Screening (Lipid Panel) 07/07/2024 Colorectal Cancer Screening: Colonoscopy 07/07/2024 Depression Screening 07/07/2024 HIV Screening 07/07/2024 Hepatitis C Screening 07/07/2024 Social Influencers of Health Screening 07/07/2024 Influenza Vaccine (Season Ended) 2024 RSV Immunization Adult Patie nts (1 - 1-dose 75+ series) 2036 HIB [...] age to complete this topic Meningococcal B Vaccine Aged Out No l onger eligible based on patient's age to complete [...] on patient's age to complete this topic Insurance [facility] Care Teams Supervisor Costuming Relationship Specialty Start Date End Date Leigh Duarte MD PCP - General Internal Medicine 06/11/19
[2024-07-26 19:17] LABS: Anion Gap 13 (12-20); Blood Urea Nitrogen 17 mg/dL (9-16); Calcium 10.1 mg/dL (8.4-10.2); Carbon Dioxide 24 mmol/L (22-29); Chloride 108 mmol/L (96-108); Estimated Glomerular Filt Rate 48; Glucose Random 115 mg/dL (60-115); Potassium 4.6 mmol/L (3.3-5.1); Sodium 140 mmol/L (135-145)
== END 2024-07-26 12:23 | disposition home or self-care (01) ==
LOC: HO.HMGCLDS 12:22
PROVIDERS: PCP Internal Medicine; Visit Provider Internal Medicine
DX: I10 Essential (primary) hypertension (principal)
CPT/HCPCS: 36415; 80048

== ENCOUNTER 2024-08-26 10:19 | Outpatient (REF) | payer BC, SELFPAY ==
--- NOTE | ~2024-08-26 | US_ITS ---
EXAMINATION: Ultrasound renal bilaterally. CLINICAL INFORMATION: CKD Stage 3a. COMPARISON: December 10, 2019. TECHNIQUE: Real-time ultrasound of the kidneys using grayscale technique. FINDINGS: Right kidney: 11 x 5 x 6 cm. Volume: 165 cc. Normal echotexture. Normal renal cortical thickness. No hydronephrosis. There is a 2.3 cm anechoic lesion without septations or flow on color Doppler interrogation at the the mid segment. Left kidney: 12 x 5 x 5 cm. Volume: 160 cc. Normal echotexture. Normal renal cortical thickness. No hydronephrosis. No solid or cystic lesion. US/US renal BI IMPRESSION: No hydronephrosis. 3 cm simple cyst, right kidney. Electronically signed by: Jez Tenorio MD 08/26/2024 10:49 AM EDT
--- OUTSIDE RECORDS SUMMARY | 2024-08-26 11:31 | XMS_ITS | Clinical Summary ---
Author Organization [address] [place] [address] [place] [phone] Phone Care Team Providers Care Countersinker Balance Screw Hole Name Role Phone Leigh Duarte MD Primary Care Provider Allergies No known active allergies Medications atorvastatin [...] Department Care Team Description 07/21/2024 Telephone Gastroenterology [facility] [address] [phone] Yecenia Fischer MD special procedure 07/07/2024 Telephone Gastroenterology [facility] [address] [phone] Yecenia Fischer MD special procedure from Last 3 Months Social History Tobacco Use Types Packs/Day Years Used Date Smoking Tobacco: Never Assessed Sex and Gender Information Value Date Recorded Sex Assigned at Not on file Legal Sex Male 11:54 AM EST Gender Identity Not on file Sexual Orientation Not on file Plan of Treatment Upcoming Encounters Date Type Department Care Team (Late st Contact Info) Description 10/25/2024 1:00 PM EDT Appointment [facility] [address] [place] [id number] Yecenia Fischer MD 175 [facility] [address] [place] [address] Health Maintenance Due Date Last Done Comments [...] patient's age to complete this topic Insurance [facility] Care Teams Countersinker Balance Screw Hole Relationship Specialty Start Date End Date Leigh Duarte MD PCP - General Internal Medicine 06/11/19
== END 2024-08-26 10:20 | disposition home or self-care (01) ==
LOC: HO.HMGCX 10:19
PROVIDERS: PCP Internal Medicine; Visit Provider Internal Medicine
DX: N18.31 Chronic kidney disease, stage 3a (principal)
CPT/HCPCS: 76775

== ENCOUNTER → 2024-08-26 10:26 | Outpatient (BNV) | payer BC, SELFPAY | PROVIDERS: PCP Internal Medicine; Visit Provider Radiology Diagnostic Radiology | DX: N18.31 Chronic kidney disease, stage 3a (principal) | CPT/HCPCS: 76775 ==

== ENCOUNTER 2024-09-18 09:46 | Outpatient (REF) | payer BC, SELFPAY ==
[2024-09-18 11:52] LABS: MANUAL DIFF FLAG NO
[2024-09-18 11:57] LABS: Basophils Percent Auto 0.6 % (0-2); Eosinophils Absolute Auto 0.1 X10*3/uL (0.0-0.4); Eosinophils Percent Auto 1.9 % (0-4); Hematocrit 37.7 % (42.0-52.0); Hemoglobin 12.4 g/dl (14.0-18.0); Imm Gran Abs Auto 0.03 X10*3/uL (0.00-0.03); Imm Gran Pct Auto 0.5 % (0.0-0.4); Lymphocytes Absolute Auto 1.7 X10*3/uL (1.2-4.9); Mean Corpuscular HGB Conc 32.9 g/dl (31.0-36.0); Mean Corpuscular Hemoglobin 30.4 pg (27.0-33.0); Mean Corpuscular Volume 92.4 fL (80.0-98.0); Monocytes Absolute Auto 0.5 X10*3/uL (0.1-1.2); Monocytes Percent Auto 7.7 % (2-11); Neutrophils Absolute Auto 4.1 x10*3/uL (2.0-8.3); Neutrophils Percent Auto 63.3 % (45-73); Platelet Count 147 X10*3/uL (160-400); Red Blood Count 4.08 X10*6/uL (4.60-5.80); Red Cell Distribution Width 13.1 % (11.0-16.0); White Blood Count 6.4 X10*3/uL (4.8-10.8)
[2024-09-18 12:10] LABS: Estimated Average Glucose 128 mg/dL; Hemoglobin A1c % 6.1 % (<6.0)
[2024-09-18 12:19] LABS: Alanine Aminotransferase 30 U/L (0-40); Albumin Level 4.6 g/dL (3.5-5.0); Alkaline Phosphatase 56 U/L (39-117); Anion Gap 12 (12-20); Aspartate Amino Transferase 22 U/L (5-37); Bilirubin Total 0.5 mg/dL (0.0-1.0); Blood Urea Nitrogen 26 mg/dL (9-16); Calcium 9.8 mg/dL (8.4-10.2); Carbon Dioxide 20 mmol/L (22-29); Chloride 110 mmol/L (96-108); Cholesterol 157 mg/dL (<200); Estimated Glomerular Filt Rate 55; Glucose Fasting 114 mg/dL (60-99); HDL Cholesterol 34 mg/dL (>40); LDL Cholesterol Calculated 88 mg/dL (<100); Potassium 4.2 mmol/L (3.3-5.1); Sodium 138 mmol/L (135-145); Total Protein 7.3 g/dL (6.5-8.0); Triglycerides 175 mg/dL (<150)
[2024-09-18 12:35] LABS: Creatinine Urine 137.22 mg/dL; Microalbum/Creatinine Ratio Ur 13.8 ug/mg cr (<30)
== END 2024-09-18 09:47 | disposition home or self-care (01) ==
LOC: HO.HMGCLDS 09:46
PROVIDERS: PCP Internal Medicine; Visit Provider Internal Medicine
DX: E11.9 Type 2 diabetes mellitus without complications (principal); I10 Essential (primary) hypertension; E78.5 Hyperlipidemia, unspecified
CPT/HCPCS: 36415; 80053; 80061; 82043; 82570; 83036; 85025

== ENCOUNTER 2024-09-23 09:06 | Outpatient (AMB) | payer BC, SELFPAY ==
[2024-09-23 09:09] VITALS: BP 122/74; PULSE 62; RESP 18; TEMP 36.8; O2SAT 95; BMI 31.9
--- NOTE | 2024-09-23 09:09 | A.OFFPC_ITS ---
Vital Signs 09/23/24 09:09 Height 5 ft 8 in Weight 210 lb BMI 31.9 BP 122/74 Blood Pressure Location Lt brachial Position Sitting Respiration 18 Pulse 62 Pulse Source Pulse Oximeter Temp 98.2 F Temp Source Oral Pulse Oximetry (%) 95 Oxygen Delivery Method Room Air Intake Visit Reasons: 3 months f/up Intake Note: Pt is here today for 3 months follow up visit. Allergies No Known Allergies Allergy (Verified 09/23/24 09:10) Medication List - Last Reconciled 09/23/24 by Leigh Duarte MD albuterol sulfate 90 mcg/actuation 2 puffs inhalation Q6H PRN atorvastatin 10 mg PO DAILY blood sugar diagnostic (FreeStyle Lite Strips) 1 qd blood-glucose meter (FreeStyle Lite Meter kit) As directed fenofibrate micronized 134 mg PO DAILY metformin 850 mg PO BID olmesartan 20 mg PO DAILY sildenafil 100 mg PO Q24H tamsulosin 0.4 mg PO DAILY Tobacco use date assessed: 09/23/24 Dental Screening Dental Screen Date: 06/22/24 HPI 3 months f/up HPI Details Patient presents for the follow-up hypertension hyperlipidemia type 2 diabetes. COUNT INCLUDES THE [facility] Medical History (Updated 09/23/24 @ 10:06 by Leigh Duarte MD) CKD stage 3a, GFR 45-59 ml/min Personal history of nicotine dependence Nicotine dependence, cigarettes, uncomplicated BPH (benign prostatic hyperplasia) Hyperlipidemia Type 2 diabetes mellitus Hypertension Surgical History History of colonoscopy Family History Father Unknown family medical history Mother Unknown family medical history Brother CAD (coronary artery disease) Social History Housing: House Patient Tobacco Use Status: Current everyday Tobacco user Cigarettes Per Day: 15 Years Smoked: (current smoker, onset 19yo, 3/4ppd x 42yrs, 30+PYH) e-Cigarette/Vaping Use: Never Used service: No Current occupational status: employed Current occupational exposures/hazards: No Cognitive needs: No Hearing needs: No Vision needs: Yes Questionnaire PHQ-9 Over the last 2 weeks, how often have you been bothered by any of the following problems? 1. Little interest or pleasure in doing things: not at all 2. Feeling down, depressed, or hopeless: not at all 3. Trouble falling or staying asleep, or sleeping too much: not at all 4. Feeling tired or having little energy: not at all 5. Poor appetite or overeating: not at all 6. Feeling bad about yourself - or that you are a failure or have let yourself or your family down: not at all 7. Trouble concentrating on things, such as reading the newspaper or watching television: not at all 8. Moving or speaking so slowly that other people could have noticed. Or the opposite - being so fidgety or restless that you have been moving around a lot more than usual: not at all 9. Thoughts that you would be better off or of hurting yourself in some way: not at all Total score: 0 Depression Screening Interpretation: Negative Depression Screening Done: Yes 90487 - PHQ-9 Billing: Yes Source: Developed by Drs. Julio César Cohn, Kaitlin Gtz, Kishore Silvestre and colleagues, with an educational gaurav from [employer]. Thrive Questionnaire Date Thrive assessed: 06/15/24 I am a: Patient What is your living situation today?: I have a steady place to live Within the past 12 months, did the food you bought not last and you didn't have the money to get more?: Never true Within the past 12 months, did you worry whether your food would run out before you got money to buy more?: Never true Do you have trouble paying for medicines?: No Do you have trouble getting transportation to medical appointments?: No Do you have trouble paying your heating and electricity bill?: No Do you have trouble taking care of your child, family member or friend?: No Do you have trouble with day-to-day activities such as bathing, preparing meals, shopping, managing finances, etc.?: No Are you currently unemployed and looking for a job?: No Are you interested in more education?: No Please select the resources that you would like help with: None Currently or been in a relationship where the following occur: No concerns reported THRIVE Score: 0 ANTHONY-7 AMB Questionnaire ANTHONY-7 Date ANTHONY - 7 assessed: 06/22/24 Source: Developed by Drs. Julio César Cohn, Kaitlin Gtz, Kishore Silvestre and colleagues, with an educational gaurav from [employer]. Review of Systems Const All systems reviewed & are unremarkable except as noted in HPI and below Eyes Reports no additional complaints ENT Reports no additional complaints Card Reports no additional complaints Resp Reports no additional complaints GI Reports no additional complaints Reports no additional complaints Physical exam (Primary Care) Vital Signs: Last Vital Signs Temp 98.2 F 09/23/24 09:09 Pulse 62 09/23/24 09:09 Resp 18 09/23/24 09:09 BP 122/74 09/23/24 09:09 Pulse Ox 95 09/23/24 09:09 Oxygen Delivery Method Room Air 09/23/24 09:09 BMI result Body Mass Index 31.9 Tobacco/Smoking Status: Tobacco use Status Tobacco use date assessed 09/23/24 09/23/24 09:10 Patient Tobacco Use Status Current everyday Tobacco 09/23/24 09:10 e-Cigarette/Vaping Use Never Used 09/23/24 09:10 PHQ-9: PHQ-9 Score PHQ-9: Total score 0 09/23/24 09:10 Depression Screening Interpretation: Negative Thrive Assessment: Date of Thrive Assessment Date Thrive assessed 06/15/24 09/23/24 09:10 Currently or been in a relationship where the following occur: No concerns reported Const General: no acute distress HENMT Face and sinus: Yes normal facial exam Eyes General: appearance normal, both eyes and all related structures Resp Effort & Inspection: normal respiratory effort Auscultation: clear to auscultation bilaterally Cardio Rhythm: regular rhythm Heart sounds: S1 normal heart sound present and S2 normal heart sound present GI Inspection: Yes normal to inspection Palpation (GI): Soft to palpation Percussion: Yes normal to percussion Coding Level of Care Code Est Pt Level 4 (34909) Diagnoses Nicotine dependence, cigarettes, uncomplicated F17.210 Personal history of nicotine dependence Z87.891 CKD stage 3a, GFR 45-59 ml/min N18.31 Type 2 diabetes mellitus E11.9 Hypertension I10 Additional Codes PHQ-9 - 38985 - PHQ-9 Billing: Yes ([id number]) Assessment & Plan Assessment & Plan (1) Nicotine dependence, cigarettes, uncomplicated: Comment: (current smoker, onset 19yo, 3/4ppd x 42yrs, 30+PYH) Code(s): F17.210 - Nicotine dependence, cigarettes, uncomplicated Category: Medical Plan: Tobacco quitting discussed with the pt (2) Personal history of nicotine dependence: Comment: (current smoker, onset 19yo, 3/4ppd x 42yrs, 30+PYH), in lung cancer screening program, last CT 2021, he missed his appointment last year, 09/2023 Code(s): Z87.891 - Personal history of nicotine dependence Category: Medical Plan: He is referred back to lung cancer screening program (3) CKD stage 3a, GFR 45-59 ml/min: Comment: Renal ultrasound 3 cm left simple cyst otherwise normal 08/2024 Code(s): N18.31 - Chronic kidney disease, stage 3a Category: Medical Plan: Avoid nephrotoxins monitor renal function (4) Type 2 diabetes mellitus: Code(s): E11.9 - Type 2 diabetes mellitus without complications Category: Medical Plan: A1c is 6.1, continue current medications ADA diet follow-up in 3 months with a fasting labs before (5) Hypertension: Code(s): I10 - Essential (primary) hypertension Category: Medical Plan: Continue medications Orders: Orders Complete Blood Count Auto Diff 3 Months E11.9 - Type 2 diabetes mellitus without complications, E78.5 - Hyperlipidemia, unspecified, I10 - Essential (primary) hypertension, N18.31 - Chronic kidney disease, stage 3a Lipid Panel 3 Months E11.9 - Type 2 diabetes mellitus without complications, E78.5 - Hyperlipidemia, unspecified, I10 - Essential (primary) hypertension, N18.31 - Chronic kidney disease, stage 3a Comprehensive [place]. Panel Fast 3 Months E11.9 - Type 2 diabetes mellitus without complications, E78.5 - Hyperlipidemia, unspecified, I10 - Essential (primary) hypertension, N18.31 - Chronic kidney disease, stage 3a Microalbumin, Random (w Creat) 3 Months E11.9 - Type 2 diabetes mellitus without complications, E78.5 - Hyperlipidemia, unspecified, I10 - Essential (primary) hypertension, N18.31 - Chronic kidney disease, stage 3a Hemoglobin A1c 3 Months E11.9 - Type 2 diabetes mellitus without complications, E78.5 - Hyperlipidemia, unspecified, I10 - Essential (primary) hypertension, N18.31 - Chronic kidney disease, stage 3a Referrals Thoracic/General Surgery Referral E11.9 - Type 2 diabetes mellitus without complications, E78.5 - Hyperlipidemia, unspecified, F17.210 - Nicotine dependence, cigarettes, uncomplicated, I10 - Essential (primary) hypertension, N18.31 - Chronic kidney disease, stage 3a, Z87.891 - Personal history of nicotine dependence
--- OUTSIDE RECORDS SUMMARY | 2024-09-23 09:47 | XMS_ITS | Clinical Summary ---
Author Organization [address] [place] [address] Address [address] [place] [address] Phone Care Team Providers Care Sales Solutions Associate Name Role Phone Leigh Duarte MD Primary Care Provider [phone] Allergies No known active allergies Medications atorvastatin [...] Department Care Team Description 07/21/2024 Telephone Gastroenterology [facility] [address] [address] Yecenia Fischer MD special procedure 07/07/2024 Telephone Gastroenterology [facility] [address] [address] Yecenia Fischer MD special procedure [...] Info) Description 10/25/2024 1:00 PM EDT Appointment [facility] Endoscopy [address] [place] [phone] Yecenia Fischer MD 175 [facility] [address] [place] [address] Health Maintenance Due Date Last Done Comments [...] patient's age to complete this topic Insurance [facility] Care Teams Sales Solutions Associate Relationship Specialty Start Date End Date Leigh Duarte MD PCP - General Internal Medicine 06/11/19
== END 2024-09-23 10:09 | disposition home or self-care (01) ==
LOC: HO.HMCC 09:07
PROVIDERS: PCP Internal Medicine; Visit Provider Internal Medicine
DX: I12.9 Hypertensive chronic kidney disease with stage 1 through stage 4 chronic kidney disease, or unspecified chronic kidney disease (principal); N18.31 Chronic kidney disease, stage 3a; E11.22 Type 2 diabetes mellitus with diabetic chronic kidney disease; F17.210 Nicotine dependence, cigarettes, uncomplicated; Z87.891 Personal history of nicotine dependence

== ENCOUNTER → 2024-09-23 09:06 | Outpatient (BNVA) | payer BC, SELFPAY | PROVIDERS: PCP Internal Medicine; Visit Provider Internal Medicine | DX: I12.9 Hypertensive chronic kidney disease with stage 1 through stage 4 chronic kidney disease, or unspecified chronic kidney disease (principal); E11.22 Type 2 diabetes mellitus with diabetic chronic kidney disease; N18.31 Chronic kidney disease, stage 3a; E78.5 Hyperlipidemia, unspecified; F17.210 Nicotine dependence, cigarettes, uncomplicated | CPT/HCPCS: 96127 ==

== ENCOUNTER 2025-01-15 09:41 | Outpatient (REF) | payer BC, SELFPAY ==
--- OUTSIDE RECORDS SUMMARY | 2025-01-15 09:43 | XMS_ITS | Clinical Summary ---
Author Organization 175 [facility] Address [address] [place] [address] Phone Care Team Providers Care Ar Manager Name Role Phone Leigh Duarte MD Primary Care Provider [phone] Allergies No known active allergies Medications atorvastatin [...] following the same meal each day. Active polyethylene glycol (Golytely) 236-22.74-6.74 -5.86 gram solution Take 4L by mouth once for one dose. May substitue any PEG. Starting at 6PM the night before your procedure drink 1 8oz glasses at your own pace until you complete half of the gallon. Finish 2nd half of the gallon 5 hours before your procedure. 4000 mL Active bisacodyL (DULCOLAX) 5 mg EC tablet Take 2 tablets by mouth right before beginning bowel prep. See instructions provided by the office 2 tablet Active Encounters Date Type Department Care Team Description 10/25/2024 1:06 PM EDT Anesthesia Event [facility] Endoscopy [address] [place] [address] Leif Patel DO Barnes, Tyanna R, CRNA 10/25/2024 12:16 PM EDT - 10/25/2024 11:59 PM EDT Hospital Encounter [facility] Endoscopy [address] [place] [address] Yecenia Fischer MD Hx of colonic polyps Discharge Disposition: Home or Self Care from Last 3 Months Surgical History Surgery Date Site/Laterality Comments EXCISIONAL HEMORRHOIDECTOMY N/A COLONOSCOPY Medical History Medical History Date Comments Hyperlipidemia Hypertension Social History Tobacco Use Types Packs/Day Years Used Date Smoking Tobacco: Every Day Cigarettes Smokeless Tobacco: Current Tobacco Cessation:Ready to Q uit: Not Asked; Counseling Given: Not Answered Interpersonal Safety Answer Date Record ed Physical Abuse 10/25/2024 Verbal Abuse 10/25/2024 Sex and Gender Information Value Date Recorded Sex Assigned at Not on file Legal Sex Male 11:54 AM EST Gender Identity Male 10/15/2024 12:15 PM EDT Sexual Orientation Not on file Obstetrics History Last Filed Vital Signs Vital Sign Reading Time Taken Comments Blood Pressure 118/72 10/25/2024 1:46 PM EDT Pulse 68 10/25/2024 1:46 PM EDT Temperature 36.1 C (97 F) 10/25/2024 1:26 PM EDT Respiratory Rate 15 10/25/2024 1:46 PM EDT Oxygen Saturation 98% 10/25/2024 1:46 PM EDT Inhaled Oxygen Concentration - - Weight 90.3 kg (199 lb) 10/25/2024 12:56 PM EDT Height 177.8 cm (5' 10 ) 10/25/2024 12:56 PM EDT Body Mass Index 28.55 10/25/2024 12:56 PM EDT Plan of Treatment Health Maintenance Due Date Last Done Comments Diabetes: Annual GFR (Glomer ular Filtration Rate) 1961 Diabetes: Annual Foot Exam 1971 Diabetes: Annual Retina Eye Exam 1971 DTaP,Tdap,and Td Vaccines (1 - Tdap) 1980 Pneumococcal Vaccine: 50+ Ye ars (1 of 2 - PCV) 1980 Zoster Vaccines (1 of 2) 2011 Depression Screening 04/21/2024 Cholesterol Screening (Lipid Panel) 07/07/2024 HIV Screening 07/07/2024 Hepatitis C Screening 07/07/2024 Social Influencers of Health Screening 07/07/2024 Diabetes: Annual Urine Albumin-Creatinine Ratio (uACR) 10/25/2024 Diabetes: Blood Sugar Contro l Test (HGBA1C) 10/25/2024 Hypertension/CHF/CAD Annual BMP Blood Test 10/25/2024 COVID-19 Vaccine (1 - 2023-2 5 season) 2024 Influenza Vaccine (#1) 2024 Colorectal Cancer Screening: Colonoscopy 10/26/2031 10/25/2024 RSV Immunization Adult Patie nts (1 - [...] on patient's age to complete this topic Procedures Procedure Name Priority Date/Time Associated Diagnosis Comments COLONOSCOPY Routine 10/25/2024 1:25 PM EDT Hx of colonic polyps TISSUE EXAM Routine 10/25/2024 1:16 PM EDT Hx of colonic polyps from Last 3 Months Results * COLONOSCOPY Anesthesia - [facility] [place]; [facility] ENDOSCOPY (10/25/2024 1:25 PM EDT) Anatomical Region Laterality Modality Endoscopy 10/25/2024 1:04 PM EDT Impressions 10/25/2024 1:27 PM EDT - Two diminutive polyps in the transverse colon and in the ascending colon, removed with a jumbo cold forceps. Resected and retrieved. - The examination was otherwise normal on direct and retroflexion views. Recommendation: - Discharge patient to home. - Await pathology results. - Repeat colonoscopy in 7 years for surveillance. Narrative 10/25/2024 1:27 PM EDT [facility] GI Patient Name: Brodie Garcia Procedure Date: 10/25/2024 1:04 PM Date of : 1960 Age: 64 Gender: Male Note Status: Finalized Attending MD: Yecenia Fischer MD, Procedure Date No Time: 10/25/2024 Procedure: Colonoscopy Indications: Screening for colorectal malignant neoplasm Providers: Yecenia Fischer MD Referring MD: Yecenia Fischer MD Medicines: Monitored Anesthesia Care Complications: No immediate complications. Estimated blood loss: Minimal. Estimated Blood Loss: Estimated blood loss was minimal. Procedure: Pre-Anesthesia Assessment: - Prior to the procedure, a History and Physical was performed, and patient medications and allergies were reviewed. The patient is competent. The risks and benefits of the procedure and the sedation options and risks were discussed with the patient. All questions were answered and informed consent was obtained. Patient identification and proposed procedure were verified by the physician, the nurse, the automation driver and the heavy equipment service technician in the pre-procedure area in the endoscopy suite. Mental Status Examination: alert and oriented. Airway Examination: normal oropharyngeal airway and neck mobility. Respiratory Examination: clear to auscultation. CV Examination: normal. Prophylactic Antibiotics: The patient does not require prophylactic antibiotics. Prior Anticoagulants: The patient has taken no anticoagulant or antiplatelet agents. ASA Grade Assessment: II - A patient with mild systemic disease. After reviewing the risks and benefits, the patient was deemed in satisfactory condition to undergo the procedure. The anesthesia plan was to use monitored anesthesia care (MAC). Immediately prior to administration of medications, the patient was re-assessed for adequacy to receive sedatives. The heart rate, respiratory rate, oxygen saturations, blood pressure, adequacy of pulmonary ventilation, and response to care were monitored throughout the procedure. The physical status of the patient was re-assessed after the procedure. After I obtained informed consent, the scope was passed under direct vision. Throughout the procedure, the patient's blood pressure, pulse, and oxygen saturations were monitored continuously. The Olympus Colonoscope was introduced through the anus and advanced to the cecum, identified by appendiceal orifice and ileocecal valve. Findings: The perianal and digital rectal examinations were normal. Two sessile polyps were found in the transverse colon and ascending colon. The polyps were diminutive in size. These polyps were removed with a jumbo cold forceps. Resection and retrieval were complete. Estimated blood loss was minimal. The exam was otherwise without abnormality on direct and retroflexion views. Procedure Code(s): --- Professional --- 86756, Colonoscopy, flexible; with biopsy, single or multiple Diagnosis Code(s): --- Professional --- D12.3, Benign neoplasm of transverse colon (hepatic flexure or splenic flexure) D12.2, Benign neoplasm of ascending colon CPT copyright 2020 [employer]. All rights reserved. The codes documented in this report are preliminary and upon eyewear consultant review may be revised to meet current compliance requirements. Yecenia Fischer MD 10/25/2024 1:27:46 PM This report has been signed electronically.Yecenia Fischer MD Number of Addenda: 0 Note Initiated On: 10/25/2024 1:04 PM Scope Withdrawal Time: 0 hours 13 minutes 40 seconds Scope In: 1:09:57 PM Scope Out: 1:26:30 PM Endoscopy Department at [facility] - [address] [place] [id number] Procedure Note Yecenia Fischer MD - 10/25/2024 [facility] GI Patient Name: Brodie Garcia Procedure Date: 10/25/2024 1:04 PM Date of : 1960 Age: 64 Gender: Male Note Status: Finalized Attending MD: Yecenia Fischer MD, Procedure Date No Time: 10/25/2024 Procedure: Colonoscopy Indications: Screening for colorectal malignant neoplasm Providers: Yecenia Fischer MD Referring MD: Yecenia Fischer MD Medicines: Monitored Anesthesia Care Complications: No immediate complications. Estimated blood loss: Minimal. Estimated Blood Loss: Estimated blood loss was minimal. Procedure: Pre-Anesthesia Assessment: - Prior to the procedure, a History and Physicalwas performed, and patient medications and allergieswere reviewed. The patient is competent. The risks and benefits of the procedure and the sedation optionsand risks were discussed with the patient. Allquestions were answered and informed consent was obtained. Patient identification and proposed procedure were verified by the physician, the nurse, theanesthetist and the heavy equipment service technician in the pre-procedure area in the endoscopy suite. Mental Status Examination: alertand oriented. Airway Examination: normal oropharyngeal airway and neck mobility. Respiratory Examination: clear to auscultation. CV Examination: normal. Prophylactic Antibiotics: The patient does notrequire prophylactic antibiotics. Prior Anticoagulants: The patient has taken no anticoagulant or antiplatelet agents. ASA Grade Assessment: II - A patient withmild systemic disease. After reviewing the risks and benefits, the patient was deemed in satisfactory condition to undergo the procedure. The anesthesia plan was to use monitored anesthesia care (MAC). Immediately prior to administration of medications, the patient was re-assessed for adequacy to receive sedatives. The heart rate, respiratory rate, oxygen saturations, blood pressure, adequacy of pulmonary ventilation, and response to care were monitored throughout the procedure. The physical status ofthe patient was re-assessed after the procedure. After I obtained informed consent, the scope was passed under direct vision. Throughout theprocedure, the patient's blood pressure, pulse, and oxygen saturations were monitored continuously. TheOlympus Colonoscope was introduced through the anus and advanced to the cecum, identified by appendiceal orifice and ileocecal valve. Findings: The perianal and digital rectal examinations were normal. Two sessile polyps were found in the transversecolon and ascending colon. The polyps were diminutive in size. These polyps were removed with a jumbo cold forceps. Resection and retrieval were complete. Estimated blood loss was minimal. The exam was otherwise without abnormality ondirect and retroflexion views. Procedure Code(s): --- Professional --- 78331, Colonoscopy, flexible; with biopsy, singleor multiple Diagnosis Code(s): --- Professional --- D12.3, Benign neoplasm of transverse colon (hepatic flexure or splenic flexure) D12.2, Benign neoplasm of ascending colon CPT copyright 2020 [employer]. All rights reserved. The codes documented in this report are preliminary and upon eyewear consultant reviewmay be revised to meet current compliance requirements. Yecenia Fischer MD 10/25/2024 1:27:46 PM This report has been signed electronically.Yecenia Fischer MD Number of Addenda: 0 Note Initiated On: 10/25/2024 1:04 PM Scope Withdrawal Time: 0 hours 13 minutes 40 seconds Scope In: 1:09:57 PM Scope Out: 1:26:30 PM Endoscopy Department at [facility] - [address] [place] [phone] IMPRESSION: - Two diminutive polyps in the transverse colon and in the ascending colon, removed with a jumbo cold forceps. Resected and retrieved. - The examination was otherwise normal on directand retroflexion views. Recommendation: - Discharge patient to home. - Await pathology results. - Repeat colonoscopy in 7 years for surveillance. Yecenia Fischer MD GI~PROCEDURE ORDERABLES Fin al Result * Tissue exam (10/25/2024 1:16 PM EDT) Final Diagnosis A. Ascending Colon, polyp: Tubular adenoma. B. Transverse Colon, polyp: Tubular adenoma. 10/26/2024 10:35 AM EDT [facility] LAB Gross Description A. Large Intestine, Right/Ascending Colon, polyp x1: Labeled specimen . Received in formalin is a 0.3 cm irregular holliday mucosal tissue fragment which is wrapped in paper and submitted in toto in one cassette, one piece, multiple levels on one slide. B. Large Intestine, Transverse Colon, polyp x1: Labeled trans colon polyp x 1 . Received in formalin are two irregular holliday mucosal tissue fragments, each measuring approximately 0.2 cm in greatest dimension, which are wrapped in paper and submitted in toto in one cassette, two pieces, multiple levels on one slide. AMY 10/26/2024 10:35 AM EDT [facility] Disclaimer Unless otherwise specified, all tissue is 10% NB formalin fixed and paraffin embedded. 10/26/2024 10:35 AM EDT [facility] Tissue Ascending colon structure / Unknown 10/25/2024 1:16 PM EDT 10/25/2024 2:37 PM EDT Tissue specimen (specimen) Transverse colon structure / Unknown 10/25/2024 1:21 PM EDT 10/25/2024 2:37 PM EDT Yecenia Fischer MD LAB PATHOLOGY ORDERABLES nal Result [facility] [address] [place] [address], from Last 3 Months Insurance [facility] Care Teams Ar Manager Relationship Specialty Start Date End Date Leigh Duarte MD [address] [facility] [place] [address] PCP - General Internal Medicine 06/11/19
[2025-01-15 11:12] LABS: MANUAL DIFF FLAG NO
[2025-01-15 11:16] LABS: Hematocrit 37.0 % (42.0-52.0); Hemoglobin 12.2 g/dl (14.0-18.0); Imm Gran Abs Auto 0.03 X10*3/uL (0.00-0.03); Imm Gran Pct Auto 0.5 % (0.0-0.4); Lymphocytes Absolute Auto 1.6 X10*3/uL (1.2-4.9); Mean Corpuscular HGB Conc 33.0 g/dl (31.0-36.0); Mean Corpuscular Hemoglobin 30.7 pg (27.0-33.0); Mean Corpuscular Volume 93.0 fL (80.0-98.0); NRBC Abs Auto 0.000 X10*3/uL (0.0-0.012); NRBC Pct Auto 0.0 /100WBC (0.0-0.2); Platelet Count 158 X10*3/uL (160-400); Red Blood Count 3.98 X10*6/uL (4.60-5.80); White Blood Count 6.5 X10*3/uL (4.8-10.8)
[2025-01-15 11:38] LABS: Alanine Aminotransferase 28 U/L (0-40); Albumin Level 4.8 g/dL (3.5-5.0); Alkaline Phosphatase 53 U/L (39-117); Anion Gap 10 (12-20); Aspartate Amino Transferase 23 U/L (5-37); Blood Urea Nitrogen 31 mg/dL (9-16); Calcium 9.7 mg/dL (8.4-10.2); Carbon Dioxide 23 mmol/L (22-29); Chloride 110 mmol/L (96-108); Cholesterol 161 mg/dL (<200); Estimated Glomerular Filt Rate 52; HDL Cholesterol 33 mg/dL (>40); Potassium 4.1 mmol/L (3.3-5.1); Sodium 139 mmol/L (135-145); Total Protein 7.3 g/dL (6.5-8.0); Triglycerides 120 mg/dL (<150)
[2025-01-15 11:47] LABS: Total Hemoglobin (HGBA1C) 3641.6493 umol/L
[2025-01-15 12:26] LABS: Microalbum/Creatinine Ratio Ur 16.2 ug/mg cr (<30)
== END 2025-01-15 09:42 | disposition home or self-care (01) ==
LOC: HO.HMGCLDS 09:41
PROVIDERS: PCP Internal Medicine; Visit Provider Internal Medicine
DX: I12.9 Hypertensive chronic kidney disease with stage 1 through stage 4 chronic kidney disease, or unspecified chronic kidney disease (principal); N18.31 Chronic kidney disease, stage 3a; E11.22 Type 2 diabetes mellitus with diabetic chronic kidney disease; E78.5 Hyperlipidemia, unspecified
CPT/HCPCS: 36415; 80053; 80061; 82043; 82570; 83036; 85025

== ENCOUNTER 2025-01-21 08:50 | Outpatient (AMB) | payer BC, SELFPAY ==
[2025-01-21 09:04] VITALS: BP 136/80; PULSE 67; RESP 18; TEMP 36.8; O2SAT 97; BMI 32.2
--- NOTE | 2025-01-21 09:04 | A.OFFPC_ITS ---
Vital Signs 01/21/25 09:04 Height 5 ft 8 in Weight 212 lb BMI 32.2 BP 136/80 Blood Pressure Location Lt brachial Position Sitting Respiration 18 Pulse 67 Pulse Source Pulse Oximeter Temp 98.2 F Temp Source Oral Pulse Oximetry (%) 97 Oxygen Delivery Method Room Air Intake Visit Reasons: Annual PE Intake Note: Pt is here today for PE. Allergies No Known Allergies Allergy (Verified 09/23/24 09:10) Medication List - Last Reconciled 01/21/25 by Leigh Duarte MD albuterol sulfate 90 mcg/actuation 2 puffs inhalation Q6H PRN atorvastatin 10 mg PO DAILY blood sugar diagnostic (FreeStyle Lite Strips) 1 qd blood-glucose meter (FreeStyle Lite Meter kit) As directed fenofibrate micronized 134 mg PO DAILY metformin 850 mg PO BID olmesartan-hydrochlorothiazide 20-12.5 mg 1 tab PO DAILY sildenafil 100 mg PO Q24H tamsulosin 0.4 mg PO DAILY Tobacco use date assessed: 01/21/25 Dental Screening Dental Screen Date: 06/22/24 HPI Annual PE HPI Details Pt presents for PE. Pt c/o R shoulder pain started after lifting heavy object at work, had PT for 3 weeks without relief and will have MR. Patient is treated by [facility] orthopedic surgeon. [facility] Medical History (Updated 01/21/25 @ 09:46 by Leigh Duarte MD) Annual physical exam CKD stage 3a, GFR 45-59 ml/min Nicotine dependence, cigarettes, uncomplicated BPH (benign prostatic hyperplasia) Hyperlipidemia Type 2 diabetes mellitus Hypertension Surgical History (Updated 01/21/25 @ 09:40 by Leigh Duarte MD) History of colonoscopy Family History Father Unknown family medical history Mother Unknown family medical history Brother CAD (coronary artery disease) Social History Housing: House Patient Tobacco Use Status: Current everyday Tobacco user Cigarettes Per Day: 15 Years Smoked: (current smoker, onset 19yo, 3/4ppd x 42yrs, 30+PYH) e-Cigarette/Vaping Use: Never Used service: No Current occupational status: employed Current occupational exposures/hazards: No Cognitive needs: No Hearing needs: No Vision needs: Yes Questionnaire PHQ-9 Over the last 2 weeks, how often have you been bothered by any of the following problems? 1. Little interest or pleasure in doing things: not at all 2. Feeling down, depressed, or hopeless: not at all 3. Trouble falling or staying asleep, or sleeping too much: not at all 4. Feeling tired or having little energy: not at all 5. Poor appetite or overeating: not at all 6. Feeling bad about yourself - or that you are a failure or have let yourself or your family down: not at all 7. Trouble concentrating on things, such as reading the newspaper or watching television: not at all 8. Moving or speaking so slowly that other people could have noticed. Or the opposite - being so fidgety or restless that you have been moving around a lot more than usual: not at all 9. Thoughts that you would be better off or of hurting yourself in some way: not at all Total score: 0 Depression Screening Interpretation: Negative Depression Screening Done: Yes Source: Developed by Drs. Julio César Cohn, Kaitlin Gtz, Kishore Silvestre and colleagues, with an educational gaurav from [employer]. Thrive Questionnaire Date Thrive assessed: 06/15/24 I am a: Patient What is your living situation today?: I have a steady place to live Within the past 12 months, did the food you bought not last and you didn't have the money to get more?: Never true Within the past 12 months, did you worry whether your food would run out before you got money to buy more?: Never true Do you have trouble paying for medicines?: No Do you have trouble getting transportation to medical appointments?: No Do you have trouble paying your heating and electricity bill?: No Do you have trouble taking care of your child, family member or friend?: No Do you have trouble with day-to-day activities such as bathing, preparing meals, shopping, managing finances, etc.?: No Are you currently unemployed and looking for a job?: No Are you interested in more education?: No Please select the resources that you would like help with: None Currently or been in a relationship where the following occur: No concerns reported THRIVE Score: 0 ANTHONY-7 AMB Questionnaire ANTHONY-7 Date ANTHONY - 7 assessed: 06/22/24 Feeling nervous, anxious, or on edge: 0 = Not at all Not being able to stop or control worryin = Not at all Worrying too much about different things: 0 = Not at all Trouble relaxin = Not at all Being so restless that it is hard to sit still: 0 = Not at all Becoming easily annoyed or irritable: 0 = Not at all Feeling afraid as if something awful might happen: 0 = Not at all Total ANTHONY-7 score (0-4 normal; 5-9 mild; 10-14 moderate; 15-21 severe): 0 Source: Developed by Drs. Julio César Cohn, Kaitlin Gtz, Kishore Silvestre and colleagues, with an educational gaurav from [employer]. Review of Systems Const All systems reviewed & are unremarkable except as noted in HPI and below Eyes Reports no additional complaints ENT Reports no additional complaints Card Reports no additional complaints Resp Reports no additional complaints GI Reports no additional complaints Reports no additional complaints Physical exam (Primary Care) Vital Signs: Last Vital Signs Temp 98.2 F 01/21/25 09:04 Pulse 67 01/21/25 09:04 Resp 18 01/21/25 09:04 BP 136/80 01/21/25 09:04 Pulse Ox 97 01/21/25 09:04 Oxygen Delivery Method Room Air 01/21/25 09:04 BMI result Body Mass Index 32.2 Tobacco/Smoking Status: Tobacco use Status Tobacco use date assessed 01/21/25 01/21/25 09:15 Patient Tobacco Use Status Current everyday Tobacco 01/21/25 09:04 e-Cigarette/Vaping Use Never Used 01/21/25 09:04 PHQ-9: PHQ-9 Score PHQ-9: Total score 0 01/21/25 09:15 Depression Screening Interpretation: Negative Thrive Assessment: Date of Thrive Assessment Date Thrive assessed 06/15/24 01/21/25 09:04 Currently or been in a relationship where the following occur: No concerns reported Const General: no acute distress HENMT Head: Yes normal to inspection Ears: hearing grossly normal bilaterally Mouth: Normal oral and palatal mucosa present Eyes General: appearance normal, both eyes and all related structures Resp Effort & Inspection: normal respiratory effort Auscultation: clear to auscultation bilaterally Cardio Rhythm: regular rhythm Heart sounds: S1 normal heart sound present and S2 normal heart sound present GI Inspection: Yes normal to inspection Palpation (GI): Soft to palpation Percussion: Yes normal to percussion Auscultation: normal bowel sounds Extrem General: Yes no clubbing, cyanosis or edema Coding Level of Care Code Est Pt Prev Care 40-64y(40594) Diagnoses Hypertension I10 CKD stage 3a, GFR 45-59 ml/min N18.31 Hyperlipidemia E78.5 Type 2 diabetes mellitus E11.9 Annual physical exam Z00.00 Assessment & Plan Assessment & Plan (1) Hypertension: Code(s): I10 - Essential (primary) hypertension Category: Medical Plan: Change olmesartan to olmesartan with hydrochlorothiazide 20/12.5. Low-sodium diet increase exercise weight loss discussed with the patient follow-up in 1 month (2) CKD stage 3a, GFR 45-59 ml/min: Comment: Renal ultrasound 3 cm left simple cyst otherwise normal 08/2024 Code(s): N18.31 - Chronic kidney disease, stage 3a Category: Medical Plan: Avoid nephrotoxins monitor renal function (3) Hyperlipidemia: Code(s): E78.5 - Hyperlipidemia, unspecified Category: Medical Plan: Continue atorvastatin and fenofibrate (4) Type 2 diabetes mellitus: Code(s): E11.9 - Type 2 diabetes mellitus without complications Category: Medical Plan: A1c is 6.3, ADA diet increase exercise weight loss discussed with the patient (5) Annual physical exam: Code(s): Z00.00 - Encounter for general adult medical examination without abnormal findings Category: Medical Plan: Well-balanced diet regular physical activity discussed with the patient. He is up-to-date with colonoscopy by Dr. Aaliyah Shelton Orders: Orders Basic Metabolic Panel 1 Month I10 - Essential (primary) hypertension, N18.31 - Chronic kidney disease, stage 3a Medications: New olmesartan-hydrochlorothiazide 20-12.5 mg 1 tab PO DAILY 90 tabs 1RF Discontinued olmesartan Discontinued Reason: Doctor's Order 20 mg PO DAILY 90 tabs 3RF
--- OUTSIDE RECORDS SUMMARY | 2025-01-21 09:17 | XMS_ITS | Clinical Summary ---
Author Organization 175 [facility] Address [address] [place] [address] Phone Care Team Providers Care Dry Chain Worker Name Role Phone Leigh Duarte MD Primary Care Provider [phone] Allergies No known active allergies Medications atorvastatin [...] Description 10/25/2024 1:06 PM EDT Anesthesia Event [facility] Endoscopy [address] [place] [address] Leif Patel DO Barnes, Tyanna R, CRNA 10/25/2024 12:16 PM EDT - 10/25/2024 11:59 PM EDT Hospital Encounter [facility] Endoscopy [address] [place] [address] Yecenia Fischer MD Hx of [...] Safety Answer Date Record ed Physical Abuse Unrecognized value 10/25/2024 Verbal Abuse Unrecognized value 10/25/2024 Sex and Gender Information Value Date [...] 3 Months Results * COLONOSCOPY Anesthesia - MAC; [facility] ENDOSCOPY (10/25/2024 1:25 PM EDT) Anatomical Region [...] for surveillance. Narrative 10/25/2024 1:27 PM EDT [facility] GI Patient Name: Brodie Garcia Procedure Date: [...] verified by the physician, the nurse, the realtime captioner and the microwave radio technician in the pre-procedure area in the [...] retroflexion views. Procedure Code(s): --- Professional --- 82954, Colonoscopy, flexible; with biopsy, single or multiple Diagnosis Code(s): --- Professional --- D12.3, Benign neoplasm of transverse colon (hepatic flexure or splenic flexure) D12.2, Benign neoplasm of ascending colon CPT copyright 2020 [employer] [place] [employer]. All rights reserved. The codes documented in this report are preliminary and upon tracing lathe set up operator review may be revised to meet current compliance requirements. Yecenia Fischer MD 10/25/2024 1:27:46 PM This report has been signed electronically.Yecenia Fischer MD Number of Addenda: 0 Note Initiated On: 10/25/2024 1:04 PM Scope Withdrawal Time: 0 hours 13 minutes 40 seconds Scope In: 1:09:57 PM Scope Out: 1:26:30 PM Endoscopy Department at [facility] - [address] [place] [phone] Procedure Note Yecenia Fischer MD - 10/25/2024 [facility] GI Patient Name: Brodie Garcia Procedure Date: [...] the physician, the nurse, theanesthetist and the microwave radio technician in the pre-procedure area in the [...] retroflexion views. Procedure Code(s): --- Professional --- 28249, Colonoscopy, flexible; with biopsy, singleor multiple Diagnosis Code(s): --- Professional --- D12.3, Benign neoplasm of transverse colon (hepatic flexure or splenic flexure) D12.2, Benign neoplasm of ascending colon CPT copyright 2020 [employer] [place] [employer]. All rights reserved. The codes documented in this report are preliminary and upon tracing lathe set up operator reviewmay be revised to meet current compliance requirements. Yecenia Fischer MD 10/25/2024 1:27:46 PM This report has been signed electronically.Yecenia Fischer MD Number of Addenda: 0 Note Initiated On: 10/25/2024 1:04 PM Scope Withdrawal Time: 0 hours 13 minutes 40 seconds Scope In: 1:09:57 PM Scope Out: 1:26:30 PM Endoscopy Department at [facility] - [address] [place] [phone] IMPRESSION: - Two diminutive polyps in the [...] polyp: Tubular adenoma. 10/26/2024 10:35 AM EDT [facility] LAB Gross Description A. Large Intestine, [...] one slide. AMY 10/26/2024 10:35 AM EDT [facility] Disclaimer Unless otherwise specified, all tissue is 10% NB formalin fixed and paraffin embedded. 10/26/2024 10:35 AM EDT [facility] Tissue Ascending colon structure / Unknown 10/25/2024 1:16 PM EDT 10/25/2024 2:37 PM EDT Tissue specimen (specimen) Transverse colon structure / Unknown 10/25/2024 1:21 PM EDT 10/25/2024 2:37 PM EDT Yecenia Fischer MD LAB PATHOLOGY ORDERABLES Fi nal Result [facility] [address] [place] [address], from Last 3 Months Insurance [facility] Care Teams Dry Chain Worker Relationship Specialty Start Date End Date Leigh Duarte MD [address] [facility] [place] [address] PCP - General Internal Medicine 06/11/19
== END 2025-01-21 09:40 | disposition home or self-care (01) ==
LOC: HO.HMCC 08:51
PROVIDERS: PCP Internal Medicine; Visit Provider Internal Medicine
DX: Z00.00 Encounter for general adult medical examination without abnormal findings (principal); I12.9 Hypertensive chronic kidney disease with stage 1 through stage 4 chronic kidney disease, or unspecified chronic kidney disease; N18.31 Chronic kidney disease, stage 3a; E11.69 Type 2 diabetes mellitus with other specified complication; E78.5 Hyperlipidemia, unspecified

== ENCOUNTER 2025-02-09 09:29 | Outpatient (REF) | payer BC, SELFPAY ==
--- NOTE | ~2025-02-09 | CT_ITS ---
CLINICAL HISTORY: F17.210 - Nicotine dependence, cigarettes, uncomplicated CT lung cancer screening (LDCT) Comparison: None provided Technique: Axial CT images of the chest using low-dose technique. Referring provider counseled the patient on shared decision-making for LDCT screening. Additional counseling was provided on smoking cessation. Effective radiation dose total: DLP 52.3 mGycm, CTDIvol 1.4 mGy. Findings: There are mild coronary artery calcifications. 5 mm nodule right upper lobe best seen on image number 24 of series 5. Coronary artery calcifications: none Limited upper abdomen: Unremarkable Other: None IMPRESSION: LungRADS 3 - Probably benign: Recommend low dose screening Chest CT in 6 months. ##L3# This document has been electronically signed by: Fermin Kruse MD on 02/10/2025 12:31:09
--- OUTSIDE RECORDS SUMMARY | 2025-02-09 10:54 | XMS_ITS | Clinical Summary ---
Author Organization [address] [facility] Address [address] [place] [address] Phone Care Team Providers Care Alum Plant Operator Name Role Phone Leigh Duarte MD Primary [...] 5 hours before your procedure. 4000 mL 5 Active bisacodyL (DULCOLAX) 5 mg EC tablet Take 2 tablets by mouth right before beginning bowel prep. See instructions provided by the office 2 tablet 5 Active Surgical History Surgery Date Site/Laterality Comments EXCISIONAL [...] Annual BMP Blood Test 10/25/2024 COVID-19 Vaccine (2023-2 5 season) 2024 Influenza Vaccine (#1) 2024 [...] 1:25 PM EDT Hx of colonic polyps from Last 3 Months or Most Recently Relevant to Health Maintenance Results * COLONOSCOPY Anesthesia - MAC; [facility] ENDOSCOPY (10/25/2024 1:25 PM EDT) Anatomical [...] for surveillance. Narrative 10/25/2024 1:[address] [facility] GI Patient Name: Brodie Garcia Procedure Date: [...] verified by the physician, the nurse, the creative consultant and the respiratory technician in the pre-procedure area in the [...] retroflexion views. Procedure Code(s): --- Professional --- 12487, Colonoscopy, flexible; with biopsy, single or multiple Diagnosis Code(s): --- Professional --- D12.3, Benign neoplasm of transverse colon (hepatic flexure or splenic flexure) D12.2, Benign neoplasm of ascending colon CPT copyright 2020 [place] [employer]. All rights reserved. The codes documented in this report are preliminary and upon pre wave assembler review may be revised to meet current compliance requirements. Yecenia Fischer MD 10/25/2024 1:27:46 PM This report has been signed electronically.Yecenia Fischer MD Number of Addenda: 0 Note Initiated On: 10/25/2024 1:04 PM Scope Withdrawal Time: 0 hours 13 minutes 40 seconds Scope In: 1:09:57 PM Scope Out: 1:26:30 PM Endoscopy Department at [facility] - [address] [place] [phone] Procedure Note Yecenia Fischer MD - 10/25/2024 [facility] GI Patient Name: Brodie Garcia Procedure Date: 10/25/2024 1:04 PM Date of : 1960 Age: 64 Gender: Male Note Status: Finalized Attending MD: Yecenia Fischer MD, Procedure Date No Time: 10/25/2024 Procedure: Colonoscopy Indications: Screening for colorectal malignant neoplasm Providers: Yecenia Fischre MD Referring MD: Yecenia Fischer MD Medicines: [...] the physician, the nurse, theanesthetist and the respiratory technician in the pre-procedure area in the [...] retroflexion views. Procedure Code(s): --- Professional --- 78954, Colonoscopy, flexible; with biopsy, singleor multiple Diagnosis Code(s): --- Professional --- D12.3, Benign neoplasm of transverse colon (hepatic flexure or splenic flexure) D12.2, Benign neoplasm of ascending colon CPT copyright 2020 [employer]. All rights reserved. The codes documented in this report are preliminary and upon pre wave assembler reviewmay be revised to meet current compliance requirements. Yecenia Fischer MD 10/25/2024 1:27:46 PM This report has been signed electronically.Yecenia Fischer MD Number of Addenda: 0 Note Initiated On: 10/25/2024 1:04 PM Scope Withdrawal Time: 0 hours 13 minutes 40 seconds Scope In: 1:09:57 PM Scope Out: 1:26:30 PM Endoscopy Department at [facility] - [address] [place] [phone] IMPRESSION: - Two diminutive polyps in the transverse colon and in the ascending colon, removed with a jumbo cold forceps. Resected and retrieved. - The examination was otherwise normal on directand retroflexion views. Recommendation: - Discharge patient to home. - Await pathology results. - Repeat colonoscopy in 7 years for surveillance. Yecenia Fischer MD GI~PROCEDURE ORDERABLES Fin al Result from Last 3 Months or Most Recently Relevant to Health Maintenance Insurance [facility] Care Teams Alum Plant Operator Relationship Specialty Start Date End Date Leigh Duarte MD [address] [facility] [place] [address] PCP - General Internal Medicine 06/11/19
== END 2025-02-09 09:30 | disposition home or self-care (01) ==
LOC: HO.CT 09:29
PROVIDERS: PCP Internal Medicine; Visit Provider Physician Assistant Medical
DX: Z12.2 Encounter for screening for malignant neoplasm of respiratory organs (principal); F17.210 Nicotine dependence, cigarettes, uncomplicated
CPT/HCPCS: 71271

== ENCOUNTER → 2025-02-09 09:32 | Outpatient (BNV) | payer BC, SELFPAY | PROVIDERS: PCP Internal Medicine; Visit Provider Radiology Diagnostic Radiology | DX: F17.210 Nicotine dependence, cigarettes, uncomplicated (principal) | CPT/HCPCS: 71271 ==

== ENCOUNTER 2025-02-17 12:20 | Outpatient (REF) | payer BC, SELFPAY ==
[2025-02-17 13:50] LABS: Anion Gap 12 (12-20); Blood Urea Nitrogen 29 mg/dL (9-16); Calcium 9.9 mg/dL (8.4-10.2); Carbon Dioxide 24 mmol/L (22-29); Chloride 107 mmol/L (96-108); Estimated Glomerular Filt Rate 52; Potassium 4.2 mmol/L (3.3-5.1); Sodium 139 mmol/L (135-145)
--- OUTSIDE RECORDS SUMMARY | 2025-02-17 15:12 | XMS_ITS | Clinical Summary ---
Author Organization 175 [facility] Address [address] [place] [address] Phone Care Team Providers Care Line Lead Name Role Phone Leigh Duarte MD Primary Care Provider [phone] Allergies No known active allergies Medications atorvastatin [...] Maintenance Results * COLONOSCOPY Anesthesia - MAC; [facility] ENDOSCOPY (10/25/2024 1:25 PM EDT) [...] for surveillance. Narrative 10/25/2024 1:27 PM EDT [facility] GI Patient Name: Brodie Garcia Procedure Date: [...] verified by the physician, the nurse, the pollution control technician and the pollution control technician in the pre-procedure area in the [...] retroflexion views. Procedure Code(s): --- Professional --- 60517, Colonoscopy, flexible; with biopsy, single or multiple Diagnosis Code(s): --- Professional --- D12.3, Benign neoplasm of transverse colon (hepatic flexure or splenic flexure) D12.2, Benign neoplasm of ascending colon CPT copyright 2020 [employer]. All rights reserved. The codes documented in this report are preliminary and upon manager of software review may be revised to meet current compliance requirements. Yecenia Fischer MD 10/25/2024 1:27:46 PM This report has been signed electronically.Yecenia Fischer MD Number of Addenda: 0 Note Initiated On: 10/25/2024 1:04 PM Scope Withdrawal Time: 0 hours 13 minutes 40 seconds Scope In: 1:09:57 PM Scope Out: 1:26:30 PM Endoscopy Department at [facility] - [address] [place] [phone] Procedure Note Yecenia Fischer MD - 10/25/2024 [facility] GI Patient Name: Brodie Garcia Procedure Date: [...] the physician, the nurse, theanesthetist and the pollution control technician in the pre-procedure area in the [...] retroflexion views. Procedure Code(s): --- Professional --- 62030, Colonoscopy, flexible; with biopsy, singleor multiple Diagnosis Code(s): --- Professional --- D12.3, Benign neoplasm of transverse colon (hepatic flexure or splenic flexure) D12.2, Benign neoplasm of ascending colon CPT copyright 2020 [employer]. All rights reserved. The codes documented in this report are preliminary and upon manager of software reviewmay be revised to meet current compliance requirements. Yecenia Fischer MD 10/25/2024 1:27:46 PM This report has been signed electronically.Yecenia Fischer MD Number of Addenda: 0 Note Initiated On: 10/25/2024 1:04 PM Scope Withdrawal Time: 0 hours 13 minutes 40 seconds Scope In: 1:09:57 PM Scope Out: 1:26:30 PM Endoscopy Department at [facility] - [address] [place] [phone] IMPRESSION: - Two diminutive polyps in the [...] Maintenance Insurance [facility] Care Teams Line Lead Relationship Specialty Start Date End Date Leigh Duarte MD [address] [facility] [place] [address] PCP - General Internal Medicine 06/11/19
== END 2025-02-17 12:21 | disposition home or self-care (01) ==
LOC: HO.HMGCLDS 12:20
PROVIDERS: PCP Internal Medicine; Visit Provider Internal Medicine
DX: I12.9 Hypertensive chronic kidney disease with stage 1 through stage 4 chronic kidney disease, or unspecified chronic kidney disease (principal); N18.31 Chronic kidney disease, stage 3a
CPT/HCPCS: 36415; 80048

== ENCOUNTER 2025-02-22 11:37 | Outpatient (AMB) | payer BC, SELFPAY ==
[2025-02-22 11:45] VITALS: BP 126/74; PULSE 68; RESP 17; TEMP 36.7; O2SAT 96; BMI 31.8
--- NOTE | 2025-02-22 11:45 | MHC.PC.OV ---
Vital Signs 02/22/25 11:45 Height 5 ft 8 in Weight 209 lb BMI 31.8 BP 126/74 Blood Pressure Location Lt brachial Position Sitting Respiration 17 Pulse 68 Pulse Source Pulse Oximeter Temp 98.1 F Temp Source Oral Pulse Oximetry (%) 96 Oxygen Delivery Method Room Air Intake Visit Reasons: 1 month f/up Intake Note: Pt is here today for 1 month follow up visit on DM. Allergies No Known Allergies Allergy (Verified 02/22/25 11:48) Medication List - Last Reconciled 02/22/25 by Leigh Duarte MD albuterol sulfate 90 mcg/actuation 2 puffs inhalation Q6H PRN atorvastatin 10 mg PO DAILY blood sugar diagnostic (FreeStyle Lite Strips) 1 qd blood-glucose meter (FreeStyle Lite Meter kit) As directed Farxiga (dapagliflozin propanediol) 5 mg PO DAILY NS fenofibrate micronized 134 mg PO DAILY metformin 850 mg PO BID olmesartan-hydrochlorothiazide 20-12.5 mg 1 tab PO DAILY sildenafil 100 mg PO Q24H tamsulosin 0.4 mg PO DAILY Tobacco use date assessed: 01/21/25 Dental Screening Dental Screen Date: 06/22/24 HPI 1 month f/up HPI Details Patient presents for the follow-up on hypertension type 2 diabetes and hyperlipidemia. He reports elevated blood glucose in the mornings up to 120 despite improving diet and increasing physical activity. Patient has been under lot of stress related to his chronic right shoulder pain from work-related injury. [facility] Medical History Annual physical exam CKD stage 3a, GFR 45-59 ml/min Nicotine dependence, cigarettes, uncomplicated BPH (benign prostatic hyperplasia) Hyperlipidemia Type 2 diabetes mellitus Hypertension Surgical History (Updated 01/21/25 @ 09:40 by Leigh Duarte MD) History of colonoscopy Family History Father Unknown family medical history Mother Unknown family medical history Brother CAD (coronary artery disease) Social History Housing: House Patient Tobacco Use Status: Current everyday Tobacco user Cigarettes Per Day: 15 Years Smoked: (current smoker, onset 19yo, 3/4ppd x 42yrs, 30+PYH) e-Cigarette/Vaping Use: Never Used service: No Current occupational status: employed Current occupational exposures/hazards: No Cognitive needs: No Hearing needs: No Vision needs: Yes Questionnaire Thrive Questionnaire Date Thrive assessed: 06/15/24 I am a: Patient What is your living situation today?: I have a steady place to live Within the past 12 months, did the food you bought not last and you didn't have the money to get more?: Never true Within the past 12 months, did you worry whether your food would run out before you got money to buy more?: Never true Do you have trouble paying for medicines?: No Do you have trouble getting transportation to medical appointments?: No Do you have trouble paying your heating and electricity bill?: No Do you have trouble taking care of your child, family member or friend?: No Do you have trouble with day-to-day activities such as bathing, preparing meals, shopping, managing finances, etc.?: No Are you currently unemployed and looking for a job?: No Are you interested in more education?: No Please select the resources that you would like help with: None Currently or been in a relationship where the following occur: No concerns reported THRIVE Score: 0 ANTHONY-7 AMB Questionnaire ANTHONY-7 Date ANTHONY - 7 assessed: 06/22/24 Source: Developed by Drs. Julio César Cohn, Kaitlin Gtz, Kishore Silvestre and colleagues, with an educational gaurav from [employer] Review of Systems Const All systems reviewed & are unremarkable except as noted in HPI and below Eyes Reports no additional complaints ENT Reports no additional complaints Card Reports no additional complaints Resp Reports no additional complaints GI Reports no additional complaints Reports no additional complaints Physical exam (Primary Care) Vital Signs: Last Vital Signs Temp 98.1 F 02/22/25 11:45 Pulse 68 02/22/25 11:45 Resp 17 02/22/25 11:45 BP 126/74 02/22/25 11:45 Pulse Ox 96 02/22/25 11:45 Oxygen Delivery Method Room Air 02/22/25 11:45 BMI result Body Mass Index 31.8 Tobacco/Smoking Status: Tobacco use Status Tobacco use date assessed 01/21/25 02/22/25 11:49 Patient Tobacco Use Status Current everyday Tobacco 02/22/25 11:49 e-Cigarette/Vaping Use Never Used 02/22/25 11:49 Thrive Assessment: Date of Thrive Assessment Date Thrive assessed 06/15/24 02/22/25 11:49 Currently or been in a relationship where the following occur: No concerns reported Const General: no acute distress Eyes General: appearance normal, both eyes and all related structures Resp Effort & Inspection: normal respiratory effort Auscultation: clear to auscultation bilaterally Cardio Rhythm: regular rhythm Heart sounds: S1 normal heart sound present and S2 normal heart sound present GI Inspection: Yes normal to inspection Coding Level of Care Code Est Pt Level 4 (91503) Diagnoses Hypertension I10 Hyperlipidemia E78.5 Type 2 diabetes mellitus E11.9 CKD stage 3a, GFR 45-59 ml/min N18.31 Assessment & Plan Assessment & Plan (1) Hypertension: Code(s): I10 - Essential (primary) hypertension Category: Medical Plan: Continue current medications (2) Hyperlipidemia: Code(s): E78.5 - Hyperlipidemia, unspecified Category: Medical Plan: Continue statin (3) Type 2 diabetes mellitus: Code(s): E11.9 - Type 2 diabetes mellitus without complications Category: Medical Plan: ADA diet increase physical activity discussed with the patient. Add Farxiga 5 mg daily continue metformin. Patient will follow-up in 2 months with a fasting labs before (4) CKD stage 3a, GFR 45-59 ml/min: Comment: Renal ultrasound 3 cm left simple cyst otherwise normal 08/2024 Code(s): N18.31 - Chronic kidney disease, stage 3a Category: Medical Plan: Avoid nephrotoxins monitor renal function Orders: Orders Comprehensive [place]. Panel Fast 2 Months E11.9 - Type 2 diabetes mellitus without complications, E78.5 - Hyperlipidemia, unspecified, I10 - Essential (primary) hypertension, N18.31 - Chronic kidney disease, stage 3a, N40.0 - Benign prostatic hyperplasia without lower urinary tract symptoms UA w Microscopic 2 Months E11.9 - Type 2 diabetes mellitus without complications, E78.5 - Hyperlipidemia, unspecified, I10 - Essential (primary) hypertension, N18.31 - Chronic kidney disease, stage 3a, N40.0 - Benign prostatic hyperplasia without lower urinary tract symptoms Complete Blood Count Auto Diff 2 Months E11.9 - Type 2 diabetes mellitus without complications, E78.5 - Hyperlipidemia, unspecified, I10 - Essential (primary) hypertension, N18.31 - Chronic kidney disease, stage 3a, N40.0 - Benign prostatic hyperplasia without lower urinary tract symptoms Hemoglobin A1c 2 Months E11.9 - Type 2 diabetes mellitus without complications, E78.5 - Hyperlipidemia, unspecified, I10 - Essential (primary) hypertension, N18.31 - Chronic kidney disease, stage 3a, N40.0 - Benign prostatic hyperplasia without lower urinary tract symptoms Lipid Panel 2 Months E11.9 - Type 2 diabetes mellitus without complications, E78.5 - Hyperlipidemia, unspecified, I10 - Essential (primary) hypertension, N18.31 - Chronic kidney disease, stage 3a, N40.0 - Benign prostatic hyperplasia without lower urinary tract symptoms Microalbumin, Random (w Creat) 2 Months E11.9 - Type 2 diabetes mellitus without complications, E78.5 - Hyperlipidemia, unspecified, I10 - Essential (primary) hypertension, N18.31 - Chronic kidney disease, stage 3a, N40.0 - Benign prostatic hyperplasia without lower urinary tract symptoms PSA,Total (Free>4and<10) 2 Months E11.9 - Type 2 diabetes mellitus without complications, E78.5 - Hyperlipidemia, unspecified, I10 - Essential (primary) hypertension, N18.31 - Chronic kidney disease, stage 3a, N40.0 - Benign prostatic hyperplasia without lower urinary tract symptoms Medications: New Farxiga (dapagliflozin propanediol) 5 mg PO DAILY 90 tabs 0RF NS
--- OUTSIDE RECORDS SUMMARY | 2025-02-22 14:20 | XMS_ITS | Clinical Summary ---
Author Organization [address] [facility] Address [address] [place] [address] Phone Care Team Providers Care Gauntlet Pairer Name Role Phone Leigh Duarte MD Primary Care Provider [phone] Allergies No known active allergies Medications atorvastatin [...] Maintenance Results * COLONOSCOPY Anesthesia - MAC; [facility] ENDOSCOPY (10/25/2024 1:25 PM EDT) Anatomical [...] for surveillance. Narrative 10/25/2024 1:27 PM EDT [facility] GI Patient Name: Brodie Garcia Procedure [...] verified by the physician, the nurse, the cotton gin yard supervisor and the mri technician in the pre-procedure area in the [...] retroflexion views. Procedure Code(s): --- Professional --- 33437, Colonoscopy, flexible; with biopsy, single or multiple Diagnosis Code(s): --- Professional --- D12.3, Benign neoplasm of transverse colon (hepatic flexure or splenic flexure) D12.2, Benign neoplasm of ascending colon CPT copyright 2020 [employer]. All rights reserved. The codes documented in this report are preliminary and upon scientific laboratory supervisor review may be revised to meet current compliance requirements. Yecenia Fischer MD 10/25/2024 1:27:46 PM This report has been signed electronically.Yecenia Fischer MD Number of Addenda: 0 Note Initiated On: 10/25/2024 1:04 PM Scope Withdrawal Time: 0 hours 13 minutes 40 seconds Scope In: 1:09:57 PM Scope Out: 1:26:30 PM Endoscopy Department at [facility] - [address] [place] [id number] Procedure Note Yecenia Fischer MD - 10/25/2024 [facility] GI Patient Name: Brodie Garcia Procedure [...] the physician, the nurse, theanesthetist and the mri technician in the pre-procedure area in the [...] retroflexion views. Procedure Code(s): --- Professional --- 83184, Colonoscopy, flexible; with biopsy, singleor multiple Diagnosis Code(s): --- Professional --- D12.3, Benign neoplasm of transverse colon (hepatic flexure or splenic flexure) D12.2, Benign neoplasm of ascending colon CPT copyright 2020 [employer]. All rights reserved. The codes documented in this report are preliminary and upon scientific laboratory supervisor reviewmay be revised to meet current compliance requirements. Yecenia Fischer MD 10/25/2024 1:27:46 PM This report has been signed electronically.Yecenia Fischer MD Number of Addenda: 0 Note Initiated On: 10/25/2024 1:04 PM Scope Withdrawal Time: 0 hours 13 minutes 40 seconds Scope In: 1:09:57 PM Scope Out: 1:26:30 PM Endoscopy Department at [facility] - [address] [place] [id number] IMPRESSION: - Two diminutive polyps in the [...] Most Recently Relevant to Health Maintenance Insurance [facility] Care Teams Gauntlet Pairer Relationship Specialty Start Date End Date Leigh Duarte MD [address] [facility] [place] [id number] PCP - General Internal Medicine 06/11/19
== END 2025-02-22 12:21 | disposition home or self-care (01) ==
LOC: HO.HMCC 11:37
PROVIDERS: PCP Internal Medicine; Visit Provider Internal Medicine
DX: I10 Essential (primary) hypertension (principal); E78.5 Hyperlipidemia, unspecified; E11.9 Type 2 diabetes mellitus without complications; N18.31 Chronic kidney disease, stage 3a